=== PATIENT | male | born 1960 | race Caucasian/White ===

== ENCOUNTER 2018-12-11 16:31 | Inpatient (IN) | payer OTHER, SELFPAY ==
[2018-12-11 16:32] VITALS: BP 159/89; PULSE 94; RESP 18; TEMP 36.7; O2SAT 94; BMI 33.5
--- NOTE | 2018-12-11 16:35 | ED.RN ---
PT OFF ALL MEDS FOR MORE THAN A YEAR. INCLUDING CARDIAC. S/O STATES SHE HAS TRIED TO CALL [employer] MULTIPLE TIMES WITHOUT A CALL BACK.
--- NOTE | 2018-12-11 16:53 | EKG12_ITS ---
Test Reason : ETOH INTOXICATION Blood Pressure : / mmHG Vent. Rate : 085 BPM Atrial Rate : 085 BPM P-R Int : 182 ms QRS Dur : 082 ms QT Int : 380 ms P-R-T Axes : 044 063 058 degrees QTc Int : 452 ms Normal sinus rhythm Normal ECG Confirmed by JEY OTERO, RAMO ([id number]), commercial production editor JEN CAVANAUGH ([id number]) on 12/12/2018 1:15:40 PM Referred By: SHARI Confirmed By:RAMO KHANNA MD
--- NOTE | 2018-12-11 16:55 | ED.VISSUMM ---
- ER Visit Summary Date of Service: 12/11/18 Chief Complaint: Alcohol intoxication wanting detox History of Present Illness: The patient is a 58 M who presents requesting detox from alcohol. Patient states he drinks approximately 12 beers per day. Patient states he drinks in the morning before he goes to work and has to have a drink in the middle the night as well. Patient states when he does not drink he feels shaky and has dry heaves. Patient denies any visual or auditory hallucinations. Patient does admit to some tingling in his feet bilaterally. Patient states his last drink was approximately noon today. Physical Examination: Vital signs are stable. Patient is afebrile. Patient is not tachycardic. Patient is in no acute distress. Oral mucosa is pink and moist. Neck is supple. Trachea is midline. There is no JVD noted. Heart was regular rate and rhythm. Lungs are clear and equal bilaterally. Abdomen is soft and nontender. Cranial nerves II through XII are intact. Strength is 5/5 bilaterally upper and lower extremities. There are no sensory deficits noted. There are no resting tremors noted. The remaining physical exam is within normal limits. Test Results: CBC and comprehensive metabolic profile were essentially within normal limits. Serum alcohol level was 253. Urine tox screen was negative. Urinalysis does not show any evidence of urinary tract infection. EKG showed normal sinus rhythm with a rate of 85. There are no acute ST or T wave changes. PA and lateral chest x-ray does not show any acute cardiopulmonary process. Emergency Department Course and Treatment: Patient was given IV fluids. Case was discussed with Dr. Roblero, hospitalist. He will admit the patient to his service. Patient was also discussed with [facility]. They were in to evaluate the patient and the patient is acceptable for admission Disposition: Admit to hospital Impression: Alcohol abuse This note was generated with [employer] dictation software. It may contain incorrect words, spelling, and punctuation that were not noted in review of the chart prior to signing ED Disposition - Plan for ED Patient: Disposition: Acute Care Hospital [facility] Diagnosis: Alcohol abuse
--- NOTE | 2018-12-11 17:07 | NURSING ---
[facility] FOR DR DE LA PAZ
[2018-12-11] MEDS: 0.9% Normal Saline 1,000 ML 1000 ML IV (17:33)
[2018-12-11 17:34] LABS: Bacteria 0 SEEN /hpf (None Seen); Mucous, Urine 0 SEEN /hpf (<or=2+); Red Blood Cells-Urine 0 SEEN /hpf (0-5); Squamous Epithelial Cells - UA 0 SEEN /hpf (0-5); White Blood Cells 0 SEEN /hpf (0-5)
[2018-12-11 17:39] LABS: Absolute Lymphocyte Count 1.28 X10^3/ul (0.83-4.51); Absolute Neutrophil Count 2.8 X10^3/uL (2.0-7.7); Basophil# 0.02 X10^3/uL; Basophil% 0.4 % (0-1); Eosinophil# 0.06 X10^3/uL; Eosinophils% 1.3 % (0-5); Hematocrit 44.5 % (40-54); Hemoglobin 15.1 g/dl (13.0-16.5); Lymphocyte # 1.28 X10^3/ul (4.0); Lymphocyte % 28.4 % (19-41); Mean Corp Hgb Conc 33.9 g/gl (32-36); Mean Corpuscular Volume 97.2 fL (80-94); Mean Platelet Vol. 8.8 fl (6.2-12.0); Monocyte# 0.39 X10^3/uL; Monocyte% 8.6 % (0-10); Neutrophil # 2.76 X10^3/uL (2.7-7.7); Neutrophil % 61.3 % (47-70); POSITIVE COUNT NO; POSITIVE DIFFERENTIAL NO; POSITIVE MORPHOLOGY NO; Platelet Count 116 K/mm3 (150-450); RBC Distribution Width CV 13.8 % (11.6-14.6); RBC Distribution Width SD 49.4 fl (35.1-43.9); Red Blood Count 4.58 M/mm3 (4.6-6.2); White Blood Count 4.5 K/mm3 (4.4-11.0)
--- NOTE | 2018-12-11 17:39 | ED.RN ---
pt states has not taken any of his cardiac medications for over 2 years
[2018-12-11 17:40] LABS: Color, Urine Yellow (Yellow); Glucose, Dipstick 50 mg/dl (Normal); Ketone-Dipstick 5 mg/dl (Negative); Leukocyte Esterase-Dipstick 25 /ul (Negative); Nitrite-Dipstick Negative (Negative); Occult Blood-Urine 25 /ul (Negative); Protein-Dipstick 30 mg/dl (Negative); Specific Gravity, Urine 1.025 (1.002-1.030); Urine Bilirubin Dipstick Negative (Negative); Urine Clarity Clear (Clear); Urine Urobilinogen Normal (Normal)
--- NOTE | 2018-12-11 17:45 | RAD_ITS ---
STUDY: X-RAY CHEST REASON FOR EXAM: Male, 58 years old. Cough and shortness of breath. TECHNIQUE: Frontal and lateral views of the chest. COMPARISON: November 22, 2015 FINDINGS: There is stable hyperexpansion. There is no demonstrated pleural abnormality. There are sternotomy wires unchanged. Normal mediastinum and shagufta. Normal visualized pulmonary arteries. Normal visualized aortic arch and descending thoracic aorta. There is stable thoracic spondylosis. Normal visualized ribs, clavicles, and shoulders. There is no demonstrated abnormality of the visualized soft tissue structures of the upper abdomen. RAD/Chest PA and Lateral IMPRESSION: Stable appearance of the chest with no acute finding. Electronically Signed: Marin Garcia MD at 18:49 EDT , Service support ,
[2018-12-11 17:50] LABS: Hyaline Cast 0-5 SEEN /lpf (0-5)
[2018-12-11 17:52] LABS: Fine Granular Cast- Urine 5-10 SEEN /lpf (0-5)
[2018-12-11 17:54] LABS: ALB/GLOB Ratio 0.9 RATIO (0.9-2.4); AST(SGOT) 114 U/L (15-37); Alanine Aminotransfer ALT/SGPT 151 U/L (16-61); Albumin, Serum 3.9 g/dL (3.2-5.0); Alkaline Phosphatase 96 U/L (45-117); Anion Gap 10 (5-15); BUN 14 mg/dL (7-18); BUN/Creat Ratio 11.8 RATIO (10-20); Calcium,Total 8.4 mg/dL (8.5-10.1); Chloride 101 mmol/L (98-107); Creatinine, Serum 1.19 mg/dL (0.70-1.30); EST Glomerular Filtration Rate 66 mL/min (>60); Est Glom Filt Rate - Afr Amer 80 mL/min (>60); Estimated Creatinine Clearance 69.01 ml/min; Globulin 4.5 g/dL (2.2-4.2); Glucose 118 mg/dL (74-106); Lipase 335 U/L (73-393); Potassium 4.1 mmol/L (3.5-5.1); Protein, Total 8.4 g/dL (6.4-8.2); Sodium Level 138 mmol/L (136-145)
[2018-12-11 18:07] LABS: Amphetamine Urine VISTA NEGATIVE (<1000 ng/mL); Barbiturate Urine VISTA NEGATIVE (< 200 ng/mL); Benzodiazepine Urine VISTA NEGATIVE (< 200 ng/mL); Cocaine Urine VISTA NEGATIVE (< 300 ng/mL); Ecstacy Urine VISTA NEGATIVE (< 500 ng/mL); Methadone Urine VISTA NEGATIVE (< 300 ng/mL); PCP Urine VISTA NEGATIVE (< 25 ng/mL); THC Urine VISTA NEGATIVE (< 50 ng/mL); Vista UDS pH Range 6
[2018-12-11 19:18] VITALS: BP 148/98; PULSE 98; RESP 16
[2018-12-11 19:22] VITALS: BMI 33.5
--- NOTE | 2018-12-11 19:37 | PCM.HP.STD ---
Problem List (1) Alcohol withdrawal Status: Acute Qualifiers: Complication of substance-induced condition: with perceptual disturbance Qualified Code(s): F10.232 - Alcohol dependence with withdrawal with perceptual disturbance History of Present Illness Date of Admission: 12/11/18 Chief Complaint: tremor, nausea The patient is a 58 year old M drinks roughly 12 beers per day. Last drink was at 12 noon today. Since then, has been having tremors, nausea, diaphoresis, dry heaves. Presented to the emergency room and for withdrawal. Patient had a intake CIWA core of 20, I calculated 17. Patient be admitted for medical stabilization for acute alcohol withdrawal. Patient expresses desire to quit and has quit previously. Patient states that part of his reasoning is due to him being suspended at work for having an alcohol level of 0.04. States that he never drinks on the job. [] Past Medical History Past Medical History (Chronic Problems): Chronic Problems CAD (coronary artery disease) (Chronic) HTN (hypertension) (Chronic) COPD (chronic obstructive pulmonary disease) (Chronic) ETOH abuse (Chronic) Allergies amiodarone Allergy (Verified 11/21/16 17:51) Unknown Penicillins Allergy (Verified 11/21/16 17:51) Unknown Home Medications: Ambulatory Orders Medication Instructions Recorded NK 12/11/18 Surgical History: coronary bypass surgery, - - cabg jun 2015 [facility] Smoking Status: Former smoker Tobacco Use: Non-smoker Alcohol: Heavy Drugs: None - *Family History Paternal History Items: Heart Disease Review of Systems Constitutional: Denies: Anorexia, Chills, Fever, Night Sweats, Malaise Eyes: Denies: Blurred vision, Double vision HEENT: Denies: Head Aches, Sinus Congestion, Sinus Drainage Cardiovascular: Denies: Chest Pain, Palpitations Respiratory: Denies: Cough, Shortness of breath at rest, Sputum production Gastrointestinal: Reports: Nausea, - - Dry heaves. Denies: Abdominal Pain Genitourinary: Denies: Dysuria Musculoskeletal: Denies: Joint Pain, Joint Tenderness Skin: Reports: - - Occasional eczema. Denies: Rash, Wounds Neurological: Denies: Numbness, Tingling, Focal weakness Psychiatric: Reports: Anxiety. Denies: Depression, Homicidal Ideations, Suicidal Ideations Hematologic/ Lymphatic: Denies: Easy Bruising, Easy Bleeding, Hx of blood clot Comment: A 10 point review of systems were negative except as mentioned in the history of present illness and the other review of systems. VTE Information - Inpt Only VTE Present on Admission: No Patient Problems: Active and Suspected Problems Alcohol withdrawal (Acute) - Physical Exam General: Alert, Cooperative, No apparent distress, - - Diaphoretic. Alert and appropriate. HEENT: Atraumatic, Normocephalic Oral: Moist Mucosa, No Gingival or Mucosal Lesions/ Ulcerations Neck: No Nodes, Thyroid Normal Size and Texture Lungs: Clear to auscultation, Normal air movement, No rhonchi, No wheeze Cardiovascular: Regular rate, Regular Rhythm, Normal S1, Normal S2, No murmurs Abdomen: Bowel Sounds Present, Soft, Non Tender, Non-Distended, No Hepato-splenomegaly Extremities: No edema, No Calf Tenderness Skin: No rashes, No breakdown Musculoskeletal: No Tenderness to Palpation of Joints or Extremities, No Muscle Wasting Neurological: - - Slight tremor Psych/Mental Status: Appropriate, Anxious Vital Signs Temp Pulse Resp BP Pulse Ox 36.7 C 98 16 148/98 H 94 12/11/18 16:32 12/11/18 19:18 12/11/18 19:18 12/11/18 19:18 12/11/18 16:32 Oxygen Delivery Method Room Air Weight: 105.959 kg Body Mass Index (BMI) 33.5 Laboratory Tests Past 24 Hrs 12/11/18 12/11/18 12/11/18 15:25 15:25 17:28 WBC 4.5 RBC 4.58 L Hgb 15.1 Hct 44.5 MCV 97.2 H MCH 33.0 H MCHC 33.9 RDW 13.8 RDW Differential 49.4 H Plt Count 116 L MPV 8.8 Immature Gran % (Auto) 0.000 Neut % (Auto) 61.3 Lymph % (Auto) 28.4 [place] % (Auto) 8.6 Eos % (Auto) 1.3 Baso % (Auto) 0.4 Absolute Neuts (auto) 2.8 Absolute Lymphs (auto) 1.28 Total Counted Not Reportable Sodium Potassium Chloride Carbon Dioxide Anion Gap BUN Creatinine Estim Creat Clear Calc Est GFR (MDRD) Af Amer Est GFR (MDRD) Non-Af BUN/Creatinine Ratio Glucose Calcium Total Bilirubin AST ALT Alkaline Phosphatase Total Protein Albumin Globulin Albumin/Globulin Ratio Lipase Urine Color Yellow Urine Clarity Clear Urine pH 5.0 Ur Specific [place] 1.025 Urine Protein 30 H Urine Glucose (UA) 50 H Urine Ketones 5 H Urine Occult Blood 25 H Urine Nitrite Negative Urine Bilirubin Negative Urine Urobilinogen Normal Ur Leukocyte Esterase 25 H Urine RBC 0 SEEN Urine WBC 0 SEEN Ur Squamous Epith Cells 0 SEEN Urine Bacteria 0 SEEN Hyaline Casts 0-5 SEEN Fine Granular Casts 5-10 SEEN Urine Mucus 0 SEEN Urine Opiates Screen NEGATIVE Urine Methadone Screen NEGATIVE Ur Barbiturates Screen NEGATIVE Ur Phencyclidine Scrn NEGATIVE Ur Amphetamines Screen NEGATIVE U Methamphetamin-MDMA NEGATIVE U Benzodiazepines Scrn NEGATIVE Urine Cocaine Screen NEGATIVE U Cannabinoids Screen NEGATIVE Ur Drug Screen Comment Ethyl Alcohol 12/11/18 12/11/18 17:28 17:28 WBC RBC Hgb Hct MCV MCH MCHC RDW RDW Differential Plt Count MPV Immature Gran % (Auto) Neut % (Auto) Lymph % (Auto) [place] % (Auto) Eos % (Auto) Baso % (Auto) Absolute Neuts (auto) Absolute Lymphs (auto) Total Counted Sodium 138 Potassium 4.1 Chloride 101 Carbon Dioxide 27.0 Anion Gap 10 BUN 14 Creatinine 1.19 Estim Creat Clear Calc 69.01 Est GFR (MDRD) Af Amer 80 Est GFR (MDRD) Non-Af 66 BUN/Creatinine Ratio 11.8 Glucose 118 H Calcium 8.4 L Total Bilirubin 0.40 AST 114 H ALT 151 H Alkaline Phosphatase 96 Total Protein 8.4 H Albumin 3.9 Globulin 4.5 H Albumin/Globulin Ratio 0.9 Lipase 335 Urine Color Urine Clarity Urine pH Ur Specific [place] Urine Protein Urine Glucose (UA) Urine Ketones Urine Occult Blood Urine Nitrite Urine Bilirubin Urine Urobilinogen Ur Leukocyte Esterase Urine RBC Urine WBC Ur Squamous Epith Cells Urine Bacteria Hyaline Casts Fine Granular Casts Urine Mucus Urine Opiates Screen Urine Methadone Screen Ur Barbiturates Screen Ur Phencyclidine Scrn Ur Amphetamines Screen U Methamphetamin-MDMA U Benzodiazepines Scrn Urine Cocaine Screen U Cannabinoids Screen Ur Drug Screen Comment Ethyl Alcohol 253.0 Assessment/Plan All Active Problems Alcohol withdrawal (Acute) Pancreatitis (Acute) Alcohol withdrawal (Acute) 1. Acute alcohol withdrawal CIWA 17 Patient be started on medical stabilization protocol with lorazepam. Patient have other medications to help him with other somatic complaints. Thiamine and folate 2. Coronary artery disease: Stable 3. DVT prophylaxis: Patient is low risk DVT prophylaxis not indicated at this time. Code Visit Inpatient E&M: 27059 Init Hosp L2
--- NOTE | 2018-12-11 19:41 | HP.PCM_ITS ---
Problem List (1) Alcohol withdrawal Status: Acute Qualifiers: Complication of substance-induced condition: with perceptual disturbance Qualified Code(s): F10.232 - Alcohol dependence with withdrawal with perceptual disturbance History of Present Illness Date of Admission: 12/11/18 Chief Complaint: tremor, nausea The patient is a 58 year old M drinks roughly 12 beers per day. Last drink was at 12 noon today. Since then, has been having tremors, nausea, diaphoresis, dry heaves. Presented to the emergency room and for withdrawal. Patient had a intake CIWA core of 20, I calculated 17. Patient be admitted for medical stabilization for acute alcohol withdrawal. Patient expresses desire to quit and has quit previously. Patient states that part of his reasoning is due to him being suspended at work for having an alcohol level of 0.04. States that he never drinks on the job. [] Past Medical History Past Medical History (Chronic Problems): Chronic Problems CAD (coronary artery disease) (Chronic) HTN (hypertension) (Chronic) COPD (chronic obstructive pulmonary disease) (Chronic) ETOH abuse (Chronic) Allergies amiodarone Allergy (Verified 11/21/16 17:51) Unknown Penicillins Allergy (Verified 11/21/16 17:51) Unknown Home Medications: Ambulatory Orders Medication Instructions Recorded NK 12/11/18 Surgical History: coronary bypass surgery, - - cabg jun 2015 [facility] Smoking Status: Former smoker Tobacco Use: Non-smoker Alcohol: Heavy Drugs: None - *Family History Paternal History Items: Heart Disease Review of Systems Constitutional: Denies: Anorexia, Chills, Fever, Night Sweats, Malaise Eyes: Denies: Blurred vision, Double vision HEENT: Denies: Head Aches, Sinus Congestion, Sinus Drainage Cardiovascular: Denies: Chest Pain, Palpitations Respiratory: Denies: Cough, Shortness of breath at rest, Sputum production Gastrointestinal: Reports: Nausea, - - Dry heaves. Denies: Abdominal Pain Genitourinary: Denies: Dysuria Musculoskeletal: Denies: Joint Pain, Joint Tenderness Skin: Reports: - - Occasional eczema. Denies: Rash, Wounds Neurological: Denies: Numbness, Tingling, Focal weakness Psychiatric: Reports: Anxiety. Denies: Depression, Homicidal Ideations, Porsha cidal Ideations Hematologic/ Lymphatic: Denies: Easy Bruising, Easy Bleeding, Hx of blood clot Comment: A 10 point review of systems were negative except as mentioned in the history of present illness and the other review of systems. VTE Information - Inpt Only VTE Present on Admission: No Patient Problems: Active and Suspected Problems Alcohol withdrawal (Acute) - Physical Exam General: Alert, Cooperative, No apparent distress, - - Diaphoretic. Alert and appropriate. HEENT: Atraumatic, Normocephalic Oral: Moist Mucosa, No Gingival or Mucosal Lesions/ Ulcerations Neck: No Nodes, Thyroid Normal Size and Texture Lungs: Clear to auscultation, Normal air movement, No rhonchi, No wheeze Cardiovascular: Regular rate, Regular Rhythm, Normal S1, Normal S2, No murmurs Abdomen: Bowel Sounds Present, Soft, Non Tender, Non-Distended, No Hepato- splenomegaly Extremities: No edema, No Calf Tenderness Skin: No rashes, No breakdown Musculoskeletal: No Tenderness to Palpation of Joints or Extremities, No Muscle Wasting Neurological: - - Slight tremor Psych/Mental Status: Appropriate, Anxious Vital Signs Temp Pulse Resp BP Pulse Ox 36.7 C 98 16 148/98 H 94 12/11/18 16:32 12/11/18 19:18 12/11/18 19:18 12/11/18 19:18 12/11/18 16:32 Oxygen Delivery Method Room Air Weight: 105.959 kg Body Mass Index (BMI) 33.5 Laboratory Tests Past 24 Hrs 12/11/18 12/11/18 12/11/18 15:25 15:25 17:28 WBC 4.5 RBC 4.58 L Hgb 15.1 Hct 44.5 MCV 97.2 H MCH 33.0 H MCHC 33.9 RDW 13.8 RDW Differential 49.4 H Plt Count 116 L MPV 8.8 Immature Gran % (Auto) 0.000 Neut % (Auto) 61.3 Lymph % (Auto) 28.4 [place] % (Auto) 8.6 Eos % (Auto) 1.3 Baso % (Auto) 0.4 Absolute Neuts (auto) 2.8 Absolute Lymphs (auto) 1.28 Total Counted Not Reportable Sodium Potassium Chloride Carbon Dioxide Anion Gap BUN Creatinine Estim Creat Clear Calc Est GFR (MDRD) Af Amer Est GFR (MDRD) Non-Af BUN/Creatinine Ratio Glucose Calcium Total Bilirubin AST ALT Alkaline Phosphatase Total Protein Albumin Globulin Albumin/Globulin Ratio Lipase Urine Color Yellow Urine Clarity Clear Urine pH 5.0 Ur Specific [place] 1.025 Urine Protein 30 H Urine Glucose (UA) 50 H Urine Ketones 5 H Urine Occult Blood 25 H Urine Nitrite Negative Urine Bilirubin Negative Urine Urobilinogen Normal Ur Leukocyte Esterase 25 H Urine RBC 0 SEEN Urine WBC 0 SEEN Ur Squamous Epith Cells 0 SEEN Urine Bacteria 0 SEEN Hyaline Casts 0-5 SEEN Fine Granular Casts 5-10 SEEN Urine Mucus 0 SEEN Urine Opiates Screen NEGATIVE Urine Methadone Screen NEGATIVE Ur Barbiturates Screen NEGATIVE Ur Phencyclidine Scrn NEGATIVE Ur Amphetamines Screen NEGATIVE U Methamphetamin-MDMA NEGATIVE U Benzodiazepines Scrn NEGATIVE Urine Cocaine Screen NEGATIVE U Cannabinoids Screen NEGATIVE Ur Drug Screen Comment Ethyl Alcohol 12/11/18 12/11/18 17:28 17:28 WBC RBC Hgb Hct MCV MCH MCHC RDW RDW Differential Plt Count MPV Immature Gran % (Auto) Neut % (Auto) Lymph % (Auto) [place] % (Auto) Eos % (Auto) Baso % (Auto) Absolute Neuts (auto) Absolute Lymphs (auto) Total Counted Sodium 138 Potassium 4.1 Chloride 101 Carbon Dioxide 27.0 Anion Gap 10 BUN 14 Creatinine 1.19 Estim Creat Clear Calc 69.01 Est GFR (MDRD) Af Amer 80 Est GFR (MDRD) Non-Af 66 BUN/Creatinine Ratio 11.8 Glucose 118 H Calcium 8.4 L Total Bilirubin 0.40 AST 114 H ALT 151 H Alkaline Phosphatase 96 Total Protein 8.4 H Albumin 3.9 Globulin 4.5 H Albumin/Globulin Ratio 0.9 Lipase 335 Urine Color Urine Clarity Urine pH Ur Specific [place] Urine Protein Urine Glucose (UA) Urine Ketones Urine Occult Blood Urine Nitrite Urine Bilirubin Urine Urobilinogen Ur Leukocyte Esterase Urine RBC Urine WBC Ur Squamous Epith Cells Urine Bacteria Hyaline Casts Fine Granular Casts Urine Mucus Urine Opiates Screen Urine Methadone Screen Ur Barbiturates Screen Ur Phencyclidine Scrn Ur Amphetamines Screen U Methamphetamin-MDMA U Benzodiazepines Scrn Urine Cocaine Screen U Cannabinoids Screen Ur Drug Screen Comment Ethyl Alcohol 253.0 Assessment/Plan All Active Problems Alcohol withdrawal (Acute) Pancreatitis (Acute) Alcohol withdrawal (Acute) 1. Acute alcohol withdrawal * CIWA 17 * Patient be started on medical stabilization protocol with lorazepam. Patient have other medications to help him with other somatic complaints. * Thiamine and folate 2. Coronary artery disease: Stable 3. DVT prophylaxis: Patient is low risk DVT prophylaxis not indicated at this time. Code Visit Inpatient E&M: 12621 Init Hosp L2
[2018-12-11 19:57] VITALS: BMI 33.3
[2018-12-11] MEDS: Ondansetron ODT 4 MG Tablet PO (20:18)
[2018-12-11] MEDS: hydrOXYzine PAM 25 MG Capsule 50 MG PO (20:18)
[2018-12-11 20:20] VITALS: BP 158/88; PULSE 90; RESP 18; TEMP 36.9
[2018-12-11] MEDS: Lactated Ringers 1,000 ML 125 ML IV (20:35)
[2018-12-11 21:39] VITALS: BP 163/94; PULSE 83; RESP 18; TEMP 36.9
[2018-12-11] MEDS: Dicyclomine 10 MG Capsule 20 MG PO (21:48)
[2018-12-11] MEDS: Methocarbamol 750 MG Tablet PO (21:48)
[2018-12-11] MEDS: traZODone 50 MG Tablet PO (21:48)
[2018-12-11] MEDS: LORazepam 1 MG Tablet PO (23:25)
[2018-12-12] VITALS (8 sets, daily range): BP systolic 151–193; BP diastolic 86–112; PULSE 75–105; RESP 16–18; TEMP 36.7–36.9; O2SAT 97
[2018-12-12] MEDS: LORazepam 1 MG Tablet PO ×5 (03:43→23:17)
[2018-12-12] MEDS: Dicyclomine 10 MG Capsule 20 MG PO (03:48)
[2018-12-12] MEDS: Methocarbamol 750 MG Tablet PO (03:48)
[2018-12-12] MEDS: Multivitamins,Therapeutic Tablet 1 TABLET PO (08:59)
[2018-12-12] MEDS: Thiamine Hydrochloride 100 MG Tablet PO (08:59)
[2018-12-12] MEDS: Folic Acid 1 MG Tablet PO (08:59)
[2018-12-12] MEDS: hydrOXYzine PAM 25 MG Capsule 50 MG PO (09:09)
[2018-12-12] MEDS: Ondansetron ODT 4 MG Tablet PO (09:09)
--- NOTE | 2018-12-12 09:12 | NURSING ---
Patient sleepy this morning-- when pt woke to use bathroom- this RN gave pt his AM meds. Pt reports always have high anxiety. PRN vistaril given and zofran. Pt reports tremors- markedly visable and nausea. Pt reports dry heaves and although breakfast and/ or snacks offered- pt refused. Pt able to drink water- and was refilled at this time.
--- NOTE | 2018-12-12 10:54 | PCM.PN.HOSP ---
Patient Problems: Active and Suspected Problems Alcohol withdrawal (Acute) Subjective: Patient is being admitted under [facility] for acute alcohol withdrawal secondary to chronic alcohol use and dependence. Patient has severe tremors and shaking. Having diffuse muscle aches and pain, abdominal cramps and restlessness. Patient mostly does not know about chronic liver disease but has alcoholic hepatitis on labs, AST 114, ALT 151. Albumin 3.9, globulin 4.5. Denies hematemesis/melena or ascites or stigmata of chronic liver disease Vitals/I&O's: Vital Signs Temp Pulse Resp BP Pulse Ox 98.2 F 75 18 187/107 H 97 12/12/18 09:06 12/12/18 10:13 12/12/18 10:15 12/12/18 10:13 12/12/18 10:13 Oxygen Delivery Method Room Air Weight: 231 lb 14.821 oz Body Mass Index (BMI) 33.3 Intake and Output for Last 24 Hours 12/10/18 12/11/18 12/12/18 23:59 23:59 23:59 Intake Total 1408 / 1408 Balance 1408 / 1408 General: Oriented x3, Cooperative, Confused, Lethargic HEENT: Atraumatic, PERRLA, EOMI, Normocephalic Neck: Supple, No JVD, Negative Carotid Bruits Lungs: Clear to auscultation, No rhonchi, No wheeze, No rales, Diminished - Air entry is diminished bilaterally Cardiovascular: Regular rate, Regular Rhythm, Normal S1, Normal S2, No murmurs Abdomen: Bowel Sounds Present, Soft, Non Tender, Non-Distended Extremities: Capillary Refill Less than 3 Seconds, Edema Skin: No rashes, No breakdown Musculoskeletal: Arthritic Changes, Muscle Wasting Lymphatic: No Cervical, Supraclavicular, or Inguinal Adenopathy Laboratory Results 12/11/18 15:25: Urine Color Yellow, Urine Clarity Clear, Urine pH 5.0, Ur Specific [place] 1.025, Urine Protein 30 H, Urine Glucose (UA) 50 H, Urine Ketones 5 H, Urine Occult Blood 25 H, Urine Nitrite Negative, Urine Bilirubin Negative, Urine Urobilinogen Normal, Ur Leukocyte Esterase 25 H, Urine RBC 0 SEEN, Urine WBC 0 SEEN, Ur Squamous Epith Cells 0 SEEN, Urine Bacteria 0 SEEN, Hyaline Casts 0-5 SEEN, Fine Granular Casts 5-10 SEEN, Urine Mucus 0 SEEN 12/11/18 15:25: Urine Opiates Screen NEGATIVE, Urine Methadone Screen NEGATIVE, Ur Barbiturates Screen NEGATIVE, Ur Phencyclidine Scrn NEGATIVE, Ur Amphetamines Screen NEGATIVE, U Methamphetamin-MDMA NEGATIVE, U Benzodiazepines Scrn NEGATIVE, Urine Cocaine Screen NEGATIVE, U Cannabinoids Screen NEGATIVE, Ur Drug Screen Comment 12/11/18 17:28: WBC 4.5, RBC 4.58 L, Hgb 15.1, Hct 44.5, MCV 97.2 H, MCH 33.0 H, MCHC 33.9, RDW 13.8, RDW Differential 49.4 H, Plt Count 116 L, MPV 8.8, Immature Gran % (Auto) 0.000, Neut % (Auto) 61.3, Lymph % (Auto) 28.4, [place] % (Auto) 8.6, Eos % (Auto) 1.3, Baso % (Auto) 0.4, Absolute Neuts (auto) 2.8, Absolute Lymphs (auto) 1.28, Total Counted Not Reportable 12/11/18 17:28: Sodium 138, Potassium 4.1, Chloride 101, Carbon Dioxide 27.0, Anion Gap 10, BUN 14, Creatinine 1.19, Estim Creat Clear Calc 69.01, Est GFR (MDRD) Af Amer 80, Est GFR (MDRD) Non-Af 66, BUN/Creatinine Ratio 11.8, Glucose 118 H, Calcium 8.4 L, Total Bilirubin 0.40, AST 114 H, ALT 151 H, Alkaline Phosphatase 96, Total Protein 8.4 H, Albumin 3.9, Globulin 4.5 H, Albumin/Globulin Ratio 0.9, Lipase 335 12/11/18 17:28: Ethyl Alcohol 253.0 Current Medications Acetaminophen (Tylenol) 500 mg PO Q4H PRN PRN PRN Reason: Temp > 100.4 F Dicyclomine HCl (Bentyl) 20 mg PO Q6H PRN PRN PRN Reason: abdominal discomfort Last Admin: 12/12/18 03:48 Dose: 20 mg Folic Acid (Folic Acid) 1 mg PO DAILYCM LIAM Last Admin: 12/12/18 08:59 Dose: 1 mg Hydroxyzine Pamoate (Vistaril Pamoate Capsule) 50 mg PO Q6H PRN PRN PRN Reason: Mild Anxiety (score 1/3) Last Admin: 12/12/18 09:09 Dose: 50 mg Ibuprofen (Motrin) 600 mg PO Q8H PRN PRN PRN Reason: Mild-Moderate Pain (1-5/10) Lorazepam (Ativan) 1 mg IV Q4H PRN PRN PRN Reason: Severe Anxiety Lorazepam (Ativan) 1 mg PO Q4H [facility]; Taper Stop: 12/14/18 23:44 Last Admin: 12/12/18 08:59 Dose: 1 mg Methocarbamol (Methocarbamol) 750 mg PO Q6H PRN PRN PRN Reason: Muscle Aches Last Admin: 12/12/18 03:48 Dose: 750 mg [facility] Last Admin: 12/12/18 08:59 Dose: 1 tablet Ondansetron HCl (Zofran Odt) 4 mg PO Q6H PRN PRN PRN Reason: NAUSEA Last Admin: 12/12/18 09:09 Dose: 4 mg Sodium Chloride () 5 - 15 ml IV UD PRN PRN Reason: SALINE FLUSH Thiamine HCl (Vitamin B1) [facility] Last Admin: 12/12/18 08:59 Dose: 100 mg Trazodone HCl (Desyrel) 50 mg PO QHS [facility] Last Admin: 12/11/18 21:48 Dose: 50 mg Medical Necessity - Tobacco Use Smoking Status: Former smoker Tobacco Use: Non-smoker Assessment/Plan All Active Problems Alcohol withdrawal (Acute) Pancreatitis (Acute) Alcohol withdrawal (Acute) 58-year-old gentleman with history of chronic alcohol use and dependence about 12 beers acute alcohol withdrawal syndrome with tremors, nausea diaphoresis every day was admitted. Admitting CIWA score was 20. 1. Acute alcohol withdrawal syndrome: Most recent CIWA score is 5. Patient is markedly visible tremor shaking. Having diffuse muscle aches and pain, abdominal cramps and restlessness. 2. Acute on chronic alcoholic hepatitis: ALT and AST are elevated, AST 114, ALT 151. Albumin 3.9, globulin 4.5. Denies hematemesis/melena or ascites or stigmata of chronic liver disease. AST was 18 on 12/2016. AST and ALT were elevated earlier in November 2016; AST 217. ALT 383 3. Coronary artery disease status post CABG: Continued home cardiac medications. 4. DVT prophylaxis: Bilateral SCDs. Clinical Impression(s) from Imaging Studies Chest X-Ray 12/11/18 17:45 IMPRESSION: Stable appearance of the chest with no acute finding. Code Visit Inpatient E&M: 15393 Subs Hosp L2
--- NOTE | 2018-12-12 11:15 | NEWVISION ---
Patient has appointment with [facility] for outpatient services on December 23, 2018 at 11 am.
[2018-12-12] MEDS: cloNIDine HCl 0.1 MG Tablet 0.2 MG PO (12:15)
[2018-12-12] MEDS: chlordiazePOXIDE 25 MG Capsule 50 MG PO (12:15)
--- NOTE | 2018-12-12 13:38 | CASEMGMT ---
Social Work Note SW received call from [place] at [place] stating she was provided pamphlet from pt regarding [employer] and that SW needs to call a Richa Shultz in regards to pt ([phone]). Pt signed release of records/information document for [employer] and placed on pt's chart. SW placed a call to Richa Shultz and left message to return this worker's phone call. STANISLAW discussed case with BETHANY Sung, social worker masters. This worker may not be able to provide any information to [employer] due to HIPAA but may be able to speak with Richa and pt on the phone at the same time regarding pt's care. STANISLAW waiting for call back from Richa. Kym Patel TABULATING CLERK, ABSTRACT CLERK
[2018-12-12 17:09] LABS: AST(SGOT) 83 U/L (15-37); Alanine Aminotransfer ALT/SGPT 121 U/L (16-61); Albumin, Serum 3.6 g/dL (3.2-5.0); Alkaline Phosphatase 81 U/L (45-117); Anion Gap 4 (5-15); BUN 14 mg/dL (7-18); BUN/Creat Ratio 11.8 RATIO (10-20); Calcium,Total 8.2 mg/dL (8.5-10.1); Chloride 98 mmol/L (98-107); Creatinine, Serum 1.19 mg/dL (0.70-1.30); EST Glomerular Filtration Rate 66 mL/min (>60); Est Glom Filt Rate - Afr Amer 80 mL/min (>60); Estimated Creatinine Clearance 69.01 ml/min; Globulin 3.6 g/dL (2.2-4.2); Glucose 107 mg/dL (74-106); Protein, Total 7.2 g/dL (6.4-8.2); Sodium Level 132 mmol/L (136-145)
[2018-12-12] MEDS: 0.9% NaCl Peripheral Flush Adult/Peds IV (17:16)
[2018-12-12] MEDS: 0.9% Normal Saline 1,000 ML 100 ML IV (17:16)
[2018-12-12] MEDS: traZODone 50 MG Tablet PO (23:14)
[2018-12-13] VITALS (11 sets, daily range): BP systolic 124–166; BP diastolic 74–99; PULSE 71–95; RESP 16–18; TEMP 36.3–36.8; O2SAT 99
[2018-12-13] MEDS: LORazepam 1 MG Tablet PO ×4 (04:40→23:34)
[2018-12-13] MEDS: cloNIDine HCl 0.1 MG Tablet 0.2 MG PO (04:51)
[2018-12-13] MEDS: Thiamine Hydrochloride 100 MG Tablet PO (08:47)
[2018-12-13] MEDS: Folic Acid 1 MG Tablet PO (08:47)
[2018-12-13] MEDS: Multivitamins,Therapeutic Tablet 1 TABLET PO (08:47)
--- NOTE | 2018-12-13 10:54 | PN_ITS ---
Patient Problems: Active and Suspected Problems Alcohol withdrawal (Acute) Subjective: Patient shaking/tremors is much better. Overall feels good. Blood pressure is elevated. Did not get good response on clonidine therefore discontinued Vitals/I&O's: Vital Signs Temp Pulse Resp BP Pulse Ox 98.0 F 82 18 142/79 H 97 12/13/18 08:16 12/13/18 08:16 12/13/18 08:16 12/13/18 08:16 12/12/18 10:13 Oxygen Delivery Method Room Air Weight: 231 lb 14.821 oz Body Mass Index (BMI) 33.3 Intake and Output for Last 24 Hours 12/11/18 12/12/18 12/13/18 23:59 23:59 23:59 Intake Total 6908 / 6908 200 / 200 Balance 6908 / 6908 200 / 200 General: Alert, Oriented x3, Cooperative HEENT: Atraumatic, PERRLA, EOMI, Normocephalic Neck: Supple, No JVD, Negative Carotid Bruits Lungs: Clear to auscultation, No rhonchi, No wheeze, No rales, Diminished - Air entry is diminished Cardiovascular: Regular rate, Regular Rhythm, Normal S1, Normal S2, No murmurs Abdomen: Bowel Sounds Present, Soft, Non Tender, Non-Distended Extremities: No edema, Capillary Refill Less than 3 Seconds Skin: No rashes, No breakdown Musculoskeletal: No Tenderness to Palpation of Joints or Extremities, Arthritic Changes, Muscle Wasting Neurological: Cranial nerves II-XII grossly intact Psych/Mental Status: Normal Affect, Appropriate Laboratory Results 12/12/18 14:18: Sodium 132 L, Potassium 4.0, Chloride 98, Carbon Dioxide 30.0, Anion Gap 4 L, BUN 14, Creatinine 1.19, Estim Creat Clear Calc 69.01, Est GFR (MDRD) Af Amer 80, Est GFR (MDRD) Non-Af 66, BUN/Creatinine Ratio 11.8, Glucose 107 H, Calcium 8.2 L, Total Bilirubin 1.00, AST 83 H, ALT 121 H, Alkaline Phosphatase 81, Total Protein 7.2, Albumin 3.6, Globulin 3.6, Albumin/Globulin Ratio 1.0 Current Medications Acetaminophen (Tylenol) 500 mg PO Q4H PRN PRN PRN Reason: Temp > 100.4 F Dicyclomine HCl (Bentyl) 20 mg PO Q6H PRN PRN PRN Reason: abdominal discomfort Last Admin: 12/12/18 03:48 Dose: 20 mg [facility] Last Admin: 12/13/18 08:47 Dose: 1 mg Hydralazine HCl (Apresoline) 25 mg PO TID [facility] Hydralazine HCl (Apresoline Iv) 10 mg IV Q4H PRN PRN PRN Reason: SBP>180 Hydroxyzine Pamoate (Vistaril Pamoate Capsule) 50 mg PO Q6H PRN PRN PRN Reason: Mild Anxiety (score 1/3) Last Admin: 12/12/18 09:09 Dose: 50 mg Ibuprofen (Motrin) 600 mg PO Q8H PRN PRN PRN Reason: Mild-Moderate Pain (1-5/10) Lorazepam (Ativan) 1 mg IV Q4H PRN PRN PRN Reason: Severe Anxiety Lorazepam (Ativan) 1 mg PO Q6H [facility]; Taper Stop: 12/14/18 23:44 Last Admin: 12/13/18 08:49 Dose: 1 mg Methocarbamol (Methocarbamol) 750 mg PO Q6H PRN PRN PRN Reason: Muscle Aches Last Admin: 12/12/18 03:48 Dose: 750 mg Metoprolol Tartrate (Lopressor (Beta Reginaldo)) 25 mg PO BID [facility] Multivitamins ([facility]ivitamin) [facility] Last Admin: 12/13/18 08:47 Dose: 1 tablet Ondansetron HCl (Zofran Odt) 4 mg PO Q6H PRN PRN PRN Reason: NAUSEA Last Admin: 12/12/18 09:09 Dose: 4 mg Senna (Senokot) 1 tablet PO QHS PRN PRN Reason: Constipation Sodium Chloride () 5 - 15 ml IV UD PRN PRN Reason: SALINE FLUSH Last Admin: 12/12/18 17:16 Dose: 10 ml Thiamine HCl (Vitamin B1) [facility] Last Admin: 12/13/18 08:47 Dose: 100 mg [facility]od[facility]) [facility] Last Admin: 12/12/18 23:14 Dose: 50 mg Medical Necessity - Tobacco Use Smoking Status: Former smoker Tobacco Use: Non-smoker Assessment/Plan All Active Problems Alcohol withdrawal (Acute) Pancreatitis (Acute) Alcohol withdrawal (Acute) 58-year-old gentleman with history of chronic alcohol use and dependence about 12 beers acute alcohol withdrawal syndrome with tremors, nausea diaphoresis every day was admitted. Admitting CIWA score was 20. 1. Acute alcohol withdrawal syndrome: Patient's tremors/shaking is much better. Had received 1 dose of Librium yesterday. 2. Acute on chronic alcoholic hepatitis: ALT and AST are elevated, AST 114, ALT 151. Albumin 3.9, globulin 4.5. Denies hematemesis/melena or ascites or stigmata of chronic liver disease. Repeat LFT shows improvement in ALT and AST as mentioned below. AST was 18 on 12/2016. AST and ALT were elevated earlier in November 2016; AST 217. ALT 383 3. Coronary artery disease status post CABG: Continued home cardiac medications. 4. DVT prophylaxis: Bilateral SCDs. Clinical Impression(s) from Imaging Studies Chest X-Ray 12/11/18 17:45 IMPRESSION: Stable appearance of the chest with no acute finding. Laboratory Results 12/12/18 14:18: Sodium 132 L, Potassium 4.0, Chloride 98, Carbon Dioxide 30.0, Anion Gap 4 L, BUN 14, Creatinine 1.19, Estim Creat Clear Calc 69.01, Est GFR (MDRD) Af Amer 80, Est GFR (MDRD) Non-Af 66, BUN/Creatinine Ratio 11.8, Glucose 107 H, Calcium 8.2 L, Total Bilirubin 1.00, AST 83 H, ALT 121 H, Alkaline Phosphatase 81, Total Protein 7.2, Albumin 3.6, Globulin 3.6, Albumin/Globulin Ratio 1.0 Code Visit Inpatient E&M: 65322 Subs Hosp L2
--- NOTE | 2018-12-13 11:39 | CASEMGMT ---
Addendum entered by Kym Patel 12/13/18 13:30: SW received message from Richa stating he is in a seminar all afternoon and will be unavailable. Richa states he will be back in the office Sunday morning at 8:00am. Richa provided direct number [phone]. It is likely pt will be discharged over the weekend. STANISLAW met with pt. STANISLAW informed pt that this worker has left messages for Richa and Richa is gone for the afternoon. STANISLAW provided pt with Richa's direct number and encouraged him to once he gets established with [facility] to have staff at [facility]. Pt states understanding, denied additional needs or concerns. Original Note: Social Work Note STANISLAW attempted to contact Richa Carrington again. Richa didn't answer, message was left for Richa to give this worker a call back at his earliest convenience. STANISLAW provided direct number. Kym Patel YARDMASTER, RADIO BROADCASTER
[2018-12-13] MEDS: Lisinopril 10 MG Tablet PO (12:35)
[2018-12-13] MEDS: hydrALAZINE 25 MG Tablet PO ×2 (12:35→21:15)
[2018-12-13] MEDS: traZODone 50 MG Tablet PO (21:15)
[2018-12-13] MEDS: hydrOXYzine PAM 25 MG Capsule 50 MG PO (21:24)
[2018-12-13] MEDS: Metoprolol Tartrate 25 MG Tablet PO (22:29)
[2018-12-14] VITALS (7 sets, daily range): BP systolic 126–159; BP diastolic 77–101; PULSE 61–81; RESP 16–18; TEMP 36.6–36.9; O2SAT 100
[2018-12-14] MEDS: hydrALAZINE 25 MG Tablet PO (06:41)
--- NOTE | 2018-12-14 07:22 | DCINST_ITS ---
- Discharge Diagnoses Current Active Problems: Current Active and Chronic Problems Alcohol withdrawal (Acute) ETOH abuse (Chronic) You will use the following diet at home:: Cardiac Discharge Activity: May Not Drive Weight Bearing Status: Weight bearing as tolerated Call your doctor if you observe: Fever of 101 or Higher, Inability to have a bowel movement, Shortness of breath, Fainting spells, Swelling in the ankles, Chest pain Allergies/Adverse Reactions: Allergies amiodarone Allergy (Verified 12/11/18 20:06) Anaphylaxis Penicillins Allergy (Verified 12/11/18 20:06) Hives Medications to take at Discharge Metoprolol Tartrate 25 mg PO BID 12/11/18 Cyanocobalamin [Vitamin B12] 500 mcg PO DAILY@0800 #30 tablet 12/14/18 Folic Acid 1 mg PO DAILYCM #30 tablet 12/14/18 Lisinopril 20 mg PO DAILY #30 tablet 12/14/18 Multivitamins,Therapeutic [Multivitamin] 1 tablet PO DAILYCM #30 tablet 12/14/18 Thiamine Hydrochloride [Vitamin B1] 100 mg PO DAILYCM #30 tablet 12/14/18 The following prescriptions were given: Cyanocobalamin [Vitamin B12] 500 mcg PO DAILY@0800 #30 tablet Folic Acid 1 mg PO DAILYCM #30 tablet Lisinopril 20 mg PO DAILY #30 tablet Multivitamins,Therapeutic [Multivitamin] 1 tablet PO DAILYCM #30 tablet Thiamine Hydrochloride [Vitamin B1] 100 mg PO DAILYCM #30 tablet Primary Care Physician: José Miguel Moses MD [Primary Care Provider] - Please follow up with your Primary Care Physician in: in 1-2 week Test Results: Test results from this visit will be discussed in further detail at your follow- up appointment, if applicable. Please Follow Up With: Arvin Mehta MD When: CAD in 2-3 week
[2018-12-14] MEDS: Multivitamins,Therapeutic Tablet 1 TABLET PO (08:16)
[2018-12-14] MEDS: Lisinopril 10 MG Tablet PO (08:16)
[2018-12-14] MEDS: Metoprolol Tartrate 25 MG Tablet PO (08:16)
[2018-12-14] MEDS: Thiamine Hydrochloride 100 MG Tablet PO (08:16)
[2018-12-14] MEDS: Folic Acid 1 MG Tablet PO (08:16)
[2018-12-14] MEDS: LORazepam 1 MG Tablet PO (08:18)
--- NOTE | 2018-12-14 09:05 | PCM.DC.SUM ---
Discharge Date and Diagnosis Date of Admission: 12/11/18 Date of Discharge: 12/14/18 - Primary Discharge Diagnosis Active and Suspected Problems Alcohol withdrawal (Acute) - Secondary Discharge Diagnosis Chronic Problems CAD (coronary artery disease) (Chronic) HTN (hypertension) (Chronic) COPD (chronic obstructive pulmonary disease) (Chronic) ETOH abuse (Chronic) Hospital Course and Treatment Summary of Care Provided: The patient is a 58-year-old gentleman with history of chronic alcohol use and dependence about 12 beers acute alcohol withdrawal syndrome with tremors, nausea diaphoresis every day was admitted. Admitting CIWA score was 20. 1. Acute alcohol withdrawal syndrome: Patient's tremors/shaking is much better. Had received 1 dose of Librium during hospital stay. Prescription was given for folic acid, thiamine, multivitamin and B12. 2. Uncontrolled hypertension: Initially blood pressure was elevated even on clonidine. Lisinopril started and increased to 20 mg daily. Prescription given for lisinopril 20 mg daily[address] Follow with Dr. Mehta in 2-3 weeks. 2. Acute on chronic alcoholic hepatitis with thrombocytopenia: ALT and AST are elevated, AST 114, ALT 151. Albumin 3.9, globulin 4.5. Denies hematemesis/melena or ascites or stigmata of chronic liver disease. Repeat LFT shows improvement in ALT and AST as mentioned below. AST was 18 on 12/2016. AST and ALT were elevated earlier in November 2016; AST 217. ALT 383 3. Coronary artery disease status post CABG: Continued home cardiac medications. Currently patient is not taking aspirin is not listed on his home medication. Patient is to follow Dr. Mehta and CBC and if platelet count is stable around 200 K resume baby aspirin but I will not recommend now as patient has thrombocytopenia, 116,000. Previous baseline platelet count about 250,000. 4. DVT prophylaxis: Bilateral SCDs. 5. Subacute thrombocytopenia most probably secondary to chronic alcohol use and dependence. Alcohol cessation. 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 Discharge follow-up instructions completed. Discharge process discussed with the patient and all questions were answered to patient's satisfaction. Total time spent, exact 35 minutes on discharge meds reconciliation, examination, review of imaging and blood test and discussion with the patient on follow-up instructions. Clinical Impression(s) from Imaging Studies Chest X-Ray 12/11/18 17:45 IMPRESSION: Stable appearance of the chest with no acute finding. Subjective: Seen and examined. Patient tremors are well controlled. Alert awake oriented x3. No hallucinations. - Physical Exam General: Alert, Oriented x3, Cooperative HEENT: Atraumatic, PERRLA, EOMI, Normocephalic Neck: Supple, No JVD, Negative Carotid Bruits Lungs: Clear to auscultation, No rhonchi, No wheeze, No rales, Diminished Cardiovascular: Regular rate, Regular Rhythm, Normal S1, Normal S2, No murmurs Abdomen: Bowel Sounds Present, Soft, Non Tender, Non-Distended Extremities: No edema, Capillary Refill Less than 3 Seconds Skin: No rashes, No breakdown Musculoskeletal: No Tenderness to Palpation of Joints or Extremities, Arthritic Changes Neurological: Cranial nerves II-XII grossly intact, Deep Tendon Reflexes 2+/4 and Symmetrical, Neuro grossly intact, Motor Exam 5/5 strength throughout Psych/Mental Status: Normal Affect, Appropriate Vital Signs Temp Pulse Resp BP Pulse Ox 98.1 F 81 16 150/101 H 100 12/14/18 08:12 12/14/18 08:16 12/14/18 08:12 12/14/18 08:12 12/14/18 06:38 Oxygen Delivery Method Room Air Weight: 231 lb 14.821 oz Body Mass Index (BMI) 33.3 Intake and Output for Last 24 Hours 12/12/18 12/13/18 12/14/18 23:59 23:59 23:59 Intake Total 6908 / 6908 3700 / 3700 400 / 400 Balance 6908 / 6908 3700 / 3700 400 / 400 Home Medications: Medications to take at Discharge Metoprolol Tartrate 25 mg PO BID 12/11/18 Cyanocobalamin [Vitamin B12] 500 mcg PO DAILY@0800 #30 tablet 12/14/18 Folic Acid 1 mg PO DAILYCM #30 tablet 12/14/18 Lisinopril 20 mg PO DAILY #30 tablet 12/14/18 Multivitamins,Therapeutic [Multivitamin] 1 tablet PO DAILYCM #30 tablet 12/14/18 Thiamine Hydrochloride [Vitamin B1] 100 mg PO DAILYCM #30 tablet 12/14/18 Following Prescrptions Were Given to Patient: Cyanocobalamin [Vitamin B12] 500 mcg PO DAILY@0800 #30 tablet Folic Acid 1 mg PO DAILYCM #30 tablet Lisinopril 20 mg PO DAILY #30 tablet Multivitamins,Therapeutic [Multivitamin] 1 tablet PO DAILYCM #30 tablet Thiamine Hydrochloride [Vitamin B1] 100 mg PO DAILYCM #30 tablet Primary Care Physician: José Miguel Moses MD [Primary Care Provider] - Medical Necessity - Tobacco Use Smoking Status: Former smoker Tobacco Use: Non-smoker Meaningful Use Info Meaningful Use Diagnoses (Choose all that apply): None applicable Code Visit Inpatient E&M: 03662 Disch Hosp
--- NOTE | 2018-12-16 16:42 | CASEMGMT ---
Social Work Note STANISLAW placed a call to Richa Shultz and informed him pt has been discharged from [facility] and if he has any further questions or concerns to follow up with pt. STANISLAW informed Richa that this worker is unable to provide information to him regarding pt's stay at [facility] or discharge as pt is no longer admitted to [facility]. Kym Patel SPOOLER, WELDER TOOL AND DIE
== END 2018-12-14 10:50 | disposition home or self-care (01) | DRG 897 ==
LOC: ED 16:53 → MS2 20:10
PROVIDERS: Emergency Provider Emergency Medicine; Family Provider Family Medicine; PCP Family Medicine; Visit Provider Internal Medicine
DX: F10.239 Alcohol dependence with withdrawal, unspecified (principal); Y90.8 Blood alcohol level of 240 mg/100 ml or more; I25.10 Atherosclerotic heart disease of native coronary artery without angina pectoris; Z95.1 Presence of aortocoronary bypass graft; I10 Essential (primary) hypertension; J44.9 Chronic obstructive pulmonary disease, unspecified; K70.10 Alcoholic hepatitis without ascites; D69.59 Other secondary thrombocytopenia; Z87.891 Personal history of nicotine dependence
CPT/HCPCS: 36415; 71046; 80053; 80307; 80320; 81001; 83690; 85025; 93005; 99282; J7030; J7120; A4216; G0480

== ENCOUNTER 2019-01-09 21:14 | Inpatient (IN) | payer OTHER, SELFPAY ==
[2019-01-09 21:16] VITALS: BP 164/113; PULSE 111; RESP 22; TEMP 36.1; O2SAT 96; BMI 33.0
[2019-01-09 22:45] VITALS: RESP 20
--- NOTE | 2019-01-09 22:56 | EKG12_ITS ---
Test Reason : Blood Pressure : / mmHG Vent. Rate : 095 BPM Atrial Rate : 095 BPM P-R Int : 168 ms QRS Dur : 072 ms QT Int : 368 ms P-R-T Axes : 083 056 045 degrees QTc Int : 462 ms Normal sinus rhythm Normal ECG Confirmed by JOHNSON OTERO, CRUZ ([id number]), photo editor JEN CAVANAUGH ([id number]) on 01/13/2019 11:37:10 AM Referred By: TL Confirmed By:CRUZ ORNELAS MD
[2019-01-09] MEDS: Ondansetron 4 MG/2 ML Vial IV (23:03)
[2019-01-09] MEDS: 0.9% Normal Saline 1,000 ML 1000 ML IV (23:03)
[2019-01-09] MEDS: LORazepam 2 MG/ML Syringe 1 MG IV (23:07)
[2019-01-09 23:09] VITALS: BP 193/109; PULSE 102; RESP 20; O2SAT 92
[2019-01-09 23:17] LABS: Absolute Neutrophil Count 6.5 X10^3/uL (2.0-7.7); Basophil# 0.02 X10^3/uL; Basophil% 0.3 % (0-1); Hematocrit 42.1 % (40-54); Hemoglobin 14.7 g/dl (13.0-16.5); Lymphocyte % 7.9 % (19-41); Mean Corp Hgb Conc 34.9 g/gl (32-36); Mean Corpuscular Hgb 33.3 pg (27.0-32.0); Mean Corpuscular Volume 95.5 fL (80-94); Mean Platelet Vol. 8.7 fl (6.2-12.0); Monocyte# 0.42 X10^3/uL; Monocyte% 5.5 % (0-10); Neutrophil # 6.53 X10^3/uL (2.7-7.7); Neutrophil % 86.2 % (47-70); Platelet Count 97 K/mm3 (150-450); RBC Distribution Width CV 13.5 % (11.6-14.6); RBC Distribution Width SD 47.3 fl (35.1-43.9); Red Blood Count 4.41 M/mm3 (4.6-6.2); White Blood Count 7.6 K/mm3 (4.4-11.0)
[2019-01-09 23:18] LABS: ALB/GLOB Ratio 0.8 RATIO (0.9-2.4); AST(SGOT) 141 U/L (15-37); Alanine Aminotransfer ALT/SGPT 152 U/L (16-61); Albumin, Serum 3.9 g/dL (3.2-5.0); Alkaline Phosphatase 130 U/L (45-117); Anion Gap 15 (5-15); BUN 10 mg/dL (7-18); BUN/Creat Ratio 8.5 RATIO (10-20); Calcium,Total 8.8 mg/dL (8.5-10.1); Chloride 96 mmol/L (98-107); Creatinine, Serum 1.17 mg/dL (0.70-1.30); EST Glomerular Filtration Rate 68 mL/min (>60); Est Glom Filt Rate - Afr Amer 82 mL/min (>60); Estimated Creatinine Clearance 70.19 ml/min; Globulin 4.7 g/dL (2.2-4.2); Glucose 104 mg/dL (74-106); Potassium 4.4 mmol/L (3.5-5.1); Protein, Total 8.6 g/dL (6.4-8.2); Sodium Level 135 mmol/L (136-145)
[2019-01-09 23:25] LABS: Differential Indicated SCAN CRITERIA MET; POSITIVE COUNT NO; POSITIVE DIFFERENTIAL YES; POSITIVE MORPHOLOGY NO
--- NOTE | 2019-01-09 23:50 | ED.VISSUMM ---
- ER Visit Summary Date of Service: 01/09/19 Chief Complaint: Alcohol withdrawal History of Present Illness: The patient is a 58 M here for alcohol withdrawal symptoms. States last drink to 3 days ago. Typically drinks 12 packs of beer per day. States nausea and vomiting with dry heaves is constant. Reports tremors increasing upper extremities. Denies alcohol withdrawal seizures. Denies any illicit drug use. Reports was admitted about a month ago stay for 4 days. He was referred [facility] to [facility], reports went there directly, had tremors, reports staffing called nursing the same day, patient was supposed to go back to the hospital however he states he did not. Reports ended up drinking alcohol. States he wants to stop drinking. Denies abdominal pain or chest pain. Upon undressing the patient nursing noted abscess left upper back, patient reports no stable week ago. Has had abscesses and drainage before. Denies fever. Physical Examination: General: Alert and oriented ?3, no acute distress. Sweating of forehead. HEENT: Normocephalic, atraumatic. Moist mucosa membranes Neck: supple, nontender. Cardiovascular: Regular tachycardic rate and rhythm, no murmurs Respiratory: Normal breath sounds, symmetric, no distress Abdomen: Soft, nontender, nondistended Extremities: Nontender, no edema, pulses intact ?4 Neuro: no focal neurological deficits. Bilateral upper extremity tremors with arm extension. Test Results: EKG sinus rate of 95 no acute changes. Hemoglobin 14.7. Creatinine 1.17. ALP 130, ALT 152, AST 141. Alcohol 44. Screen pending. Emergency Department Course and Treatment: Patient with a see was score of 19. Fluids Zofran and Ativan was given. Heart rate improved swelling improved tremors improved. Labs consistent with alcohol hepatitis. Alcohol is 44. He does have thrombocytopenia platelets 97 similar to previous. Abscesses back was drained with copious exudate. White count normal. Discussed with hospitalist Dr. Way, will admit to medical floor for further management. Heart rate, blood pressure stable. He stable for the medical floor. Treatment Plan: [] Disposition: Admission Impression: 1. Alcohol withdrawal 2. Thrombocytopenia 3. Alcoholic hepatitis 4. Back abscess status post incision and drainage This note was generated with [employer] dictation software. It may contain incorrect words, spelling, and punctuation that were not noted in review of the chart prior to signing ED Disposition - Plan for ED Patient: Disposition: Acute Care Hospital [facility] Diagnosis: Alcohol withdrawal, Thrombocytopenia, Alcoholic hepatitis, Back abscess Referrals: José Miguel Moses MD [Primary Care Provider] -
--- NOTE | 2019-01-09 23:53 | ED.DCSUM_ITS ---
- ER Visit Summary Date of Service: 01/09/19 Chief Complaint: Alcohol withdrawal History of Present Illness: The patient is a 58 M here for alcohol withdrawal symptoms. States last drink to 3 days ago. Typically drinks 12 packs of beer per day. States nausea and vomiting with dry heaves is constant. Reports tremors increasing upper extremities. Denies alcohol withdrawal seizures. Denies any illicit drug use. Reports was admitted about a month ago stay for 4 days. He was referred out to [facility], reports went there directly, had tremors, reports staffing called nursing the same day, patient was supposed to go back to the hospital however he states he did not. Reports ended up drinking alcohol. States he wants to stop drinking. Denies abdominal pain or chest pain. Upon undressing the patient nursing noted abscess left upper back, patient reports no stable week ago. Has had abscesses and drainage before. Denies fever. Physical Examination: General: Alert and oriented ?3, no acute distress. Sweating of forehead. HEENT: Normocephalic, atraumatic. Moist mucosa membranes Neck: supple, nontender. Cardiovascular: Regular tachycardic rate and rhythm, no murmurs Respiratory: Normal breath sounds, symmetric, no distress Abdomen: Soft, nontender, nondistended Extremities: Nontender, no edema, pulses intact ?4 Neuro: no focal neurological deficits. Bilateral upper extremity tremors with arm extension. Test Results: EKG sinus rate of 95 no acute changes. Hemoglobin 14.7. Creatinine 1.17. ALP 130, ALT 152, AST 141. Alcohol 44. Screen pending. Emergency Department Course and Treatment: Patient with a see was score of 19. Fluids Zofran and Ativan was given. Heart rate improved swelling improved tremors improved. Labs consistent with alcohol hepatitis. Alcohol is 44. He d oes have thrombocytopenia platelets 97 similar to previous. Abscesses back was drained with copious exudate. White count normal. Discussed with hospitalist Dr. Way, will admit to medical floor for further management. Heart rate, blood pressure stable. He stable for the medical floor. Treatment Plan: [] Disposition: Admission Impression: 1. Alcohol withdrawal 2. Thrombocytopenia 3. Alcoholic hepatitis 4. Back abscess status post incision and drainage This note was generated with [employer] dictation software. It may contain incorrect words, spelling, and punctuation that were not noted in review of the chart prior to signing ED Disposition - Plan for ED Patient: Disposition: Acute Care Hospital [facility] Diagnosis: Alcohol withdrawal, Thrombocytopenia, Alcoholic hepatitis, Back abscess Referrals: José Miguel Moses MD [Primary Care Provider] -
[2019-01-10] VITALS (7 sets, daily range): BP systolic 140–170; BP diastolic 85–100; PULSE 86–125; RESP 16–20; TEMP 37.2–37.4; O2SAT 94–97; BMI 32.3
--- NOTE | 2019-01-10 00:51 | PCM.HP.STD ---
Problem List (1) Alcohol withdrawal Status: Acute Qualifiers: Complication of substance-induced condition: with perceptual disturbance Qualified Code(s): F10.232 - Alcohol dependence with withdrawal with perceptual disturbance (2) CAD (coronary artery disease) Status: Chronic (3) HTN (hypertension) Status: Chronic (4) Alcoholic hepatitis Status: Acute (5) Thrombocytopenia Status: Acute History of Present Illness Date of Admission: 01/10/19 Chief Complaint: Alcohol abuse The patient is a 58 year old M with PMH as below who presents to the ER with alcohol withdrawal symptoms. He was recently discharged from the hospital at the end of November after completing [employer] and was sent 180 for outpatient management. He states on arrival he had some tremors and the staff at [facility] requested to go back to the hospital which he did not. He states that his last drink was about 2 to 3 days ago and he wants to quit drinking. He said before his recent admission to [facility] he was drinking about a 12 pack of beer daily, he does not admit to drinking that much the last couple of days. In the ER he was found to have thrombocytopenia, which is new as well as hepatitis which is fairly chronic. Past Medical History Past Medical History (Chronic Problems): Chronic Problems CAD (coronary artery disease) (Chronic) HTN (hypertension) (Chronic) COPD (chronic obstructive pulmonary disease) (Chronic) ETOH abuse (Chronic) Allergies amiodarone Allergy (Verified 01/09/19 21:17) Anaphylaxis Penicillins Allergy (Verified 01/09/19 21:17) Hives Home Medications: Ambulatory Orders Medication Instructions Recorded Metoprolol Tartrate 25 mg PO BID 12/11/18 Cyanocobalamin [Vitamin B12] 500 mcg PO DAILY@0800 #30 tablet 12/14/18 Folic Acid 1 mg PO DAILYCM #30 tablet 12/14/18 Lisinopril 20 mg PO DAILY #30 tablet 12/14/18 Multivitamins,Therapeutic 1 tablet PO DAILYCM #30 tablet 12/14/18 [Multivitamin] Thiamine Hydrochloride [Vitamin B1] 100 mg PO DAILYCM #30 tablet 12/14/18 Surgical History: coronary bypass surgery, - - cabg jun 2015 [facility] Smoking Status: Former smoker Tobacco Use: Cigarettes Alcohol: Heavy Drugs: None - *Family History Paternal History Items: Heart Disease Review of Systems Constitutional: Denies: Chills, Fever, Weight Change HEENT: Denies: Head Aches, Sinus Congestion, Sinus Drainage Cardiovascular: Denies: Chest Pain, Palpitations Respiratory: Denies: Cough, Shortness of breath at rest, Sputum production Gastrointestinal: Denies: Abdominal Pain, Nausea, Vomiting Genitourinary: Denies: Dysuria Musculoskeletal: Denies: Joint Pain, Joint Tenderness Skin: Denies: Rash, Wounds Neurological: Reports: Tremor. Denies: Focal weakness, Numbness, Tingling Psychiatric: Reports: Anxiety. Denies: Depression Hematologic/ Lymphatic: Denies: Easy Bruising, Easy Bleeding VTE Information - Inpt Only VTE Present on Admission: No - Physical Exam General: Alert, Oriented x3, Cooperative, No apparent distress, - - Tremoring HEENT: Atraumatic, PERRLA, EOMI, Normocephalic Oral: Dry Mucosa Neck: Supple, No JVD, Trachea Midline Lungs: Clear to auscultation, Normal air movement, No rhonchi, No wheeze, No rales Cardiovascular: Regular Rhythm, Normal S1, Normal S2, No murmurs, Tachycardic Abdomen: Soft, Non Tender, Non-Distended, No Hepato-splenomegaly Skin: No rashes, No breakdown, - - Sebaceous cyst on his back, I&D per ER Neurological: Neuro grossly intact, Sensory exam intact to light touch and pain Psych/Mental Status: Anxious, Restless Vital Signs Temp Pulse Resp BP Pulse Ox 97 F L 108 H 18 168/91 H 94 01/09/19 21:16 01/10/19 00:21 01/10/19 00:21 01/10/19 00:21 01/10/19 00:21 Oxygen Delivery Method Room Air Weight: 225 lb 1.471 oz Body Mass Index (BMI) 32.3 Laboratory Tests Past 24 Hrs 01/09/19 01/09/19 01/09/19 22:50 22:50 22:50 WBC 7.6 RBC 4.41 L Hgb 14.7 Hct 42.1 MCV 95.5 H MCH 33.3 H MCHC 34.9 RDW 13.5 RDW Differential 47.3 H Plt Count 97 L MPV 8.7 Immature Gran % (Auto) 0.100 Neut % (Auto) 86.2 H Lymph % (Auto) 7.9 L [place] % (Auto) 5.5 Eos % (Auto) 0.0 Baso % (Auto) 0.3 Absolute Neuts (auto) 6.5 Absolute Lymphs (auto) 0.60 L Total Counted Not Reportable Sodium 135 L Potassium 4.4 Chloride 96 L Carbon Dioxide 24.0 Anion Gap 15 BUN 10 Creatinine 1.17 Estim Creat Clear Calc 70.19 Est GFR (MDRD) Af Amer 82 Est GFR (MDRD) Non-Af 68 BUN/Creatinine Ratio 8.5 L Glucose 104 Calcium 8.8 Total Bilirubin 1.00 AST 141 H ALT 152 H Alkaline Phosphatase 130 H Total Protein 8.6 H Albumin 3.9 Globulin 4.7 H Albumin/Globulin Ratio 0.8 L Ethyl Alcohol 44.0 Assessment/Plan All Active Problems Alcohol withdrawal (Acute) Thrombocytopenia (Acute) Alcoholic hepatitis (Acute) Back abscess (Acute) Pancreatitis (Acute) Alcohol withdrawal (Acute) 1. Alcohol withdrawal/chronic alcoholic hepatitis/thrombocytopenia -Per the ER, CIWA of 19 he was given a dose of Ativan -Given his hepatitis, will provide an Ativan oral tapering to the Librium taper -As he is through his acute withdrawal episode liver ultrasound and evaluation for cirrhosis and hopefully recovery of his thrombocytopenia as an outpatient 2. HTN -His systolic blood pressures are greater than 160 likely secondary to his alcohol withdrawal -We will continue with his home medications of lisinopril and metoprolol DVT: Ambulation Code Visit Inpatient E&M: 81905 Init Hosp L2
[2019-01-10] MEDS: LORazepam 2 MG/ML Syringe 1 MG IV ×3 (01:15→08:48)
[2019-01-10] MEDS: Methocarbamol 750 MG Tablet PO (01:37)
[2019-01-10] MEDS: LORazepam 1 MG Tablet PO ×6 (01:37→21:06)
[2019-01-10] MEDS: hydrOXYzine PAM 25 MG Capsule 50 MG PO (01:37)
[2019-01-10] MEDS: 0.9% NaCl Peripheral Flush Adult/Peds IV ×3 (01:37→08:48)
[2019-01-10] MEDS: Dicyclomine 10 MG Capsule 20 MG PO (01:37)
[2019-01-10] MEDS: Ondansetron 4 MG/2 ML Vial IV (02:23)
[2019-01-10] MEDS: cloNIDine HCl 0.2 MG Tablet PO ×2 (02:23→21:06)
[2019-01-10 06:12] LABS: Amphetamine Urine VISTA NEGATIVE (<1000 ng/mL); Barbiturate Urine VISTA NEGATIVE (< 200 ng/mL); Benzodiazepine Urine VISTA NEGATIVE (< 200 ng/mL); Cocaine Urine VISTA NEGATIVE (< 300 ng/mL); Ecstacy Urine VISTA NEGATIVE (< 500 ng/mL); Methadone Urine VISTA NEGATIVE (< 300 ng/mL); PCP Urine VISTA NEGATIVE (< 25 ng/mL); THC Urine VISTA NEGATIVE (< 50 ng/mL); Vista UDS pH Range 6
--- NOTE | 2019-01-10 07:31 | US_ITS ---
STUDY: ABDOMINAL ULTRASOUND - RIGHT UPPER QUADRANT REASON FOR VISIT: Male, 58 years old. Elevated LFTs TECHNIQUE: Ultrasound evaluation of the right upper quadrant was performed with real-time and static flores-scale imaging. TECHNICAL QUALITY: Limited. Examination limited by bowel gas. COMPARISON: 11/21/2016 FINDINGS: Liver: The liver measures 17.1 cm. There is increased echogenicity consistent with fatty infiltration. The bile ducts are within normal limits. There is hepatic color flow. The direction of portal flow is hepatopetal. There is no demonstrated mass lesion. Gallbladder: Normal distended gallbladder. The gallbladder wall measures 1.8 mm. There is a negative sonographic Jacobs's sign. There is no pericholecystic fluid. There are no gallstones. Common Bile Duct (C.B.D.): The common bile duct measures 5.2 mm. Pancreas: There is nonvisualization of the pancreas. Right Kidney: Normal size of the right kidney. The right kidney measures 11.1 x 6.0 x 5.7 cm. Normal renal cortex. The right cortex measures 1.6 cm. There is no demonstrated renal mass or cyst. There is no right hydronephrosis. US/Abdomen Limited IMPRESSION: Fatty infiltration of liver, no discrete lesion Electronically Signed: Fletcher Cardoso MD at 15:14 EDT , Service support ,
[2019-01-10 08:24] LABS: Absolute Neutrophil Count 3.7 X10^3/uL (2.0-7.7); Basophil# 0.01 X10^3/uL; Basophil% 0.2 % (0-1); Hematocrit 38.4 % (40-54); Hemoglobin 12.6 g/dl (13.0-16.5); Lymphocyte % 15.4 % (19-41); Mean Corp Hgb Conc 32.8 g/gl (32-36); Mean Corpuscular Hgb 31.9 pg (27.0-32.0); Mean Corpuscular Volume 97.2 fL (80-94); Mean Platelet Vol. 9.2 fl (6.2-12.0); Monocyte# 0.65 X10^3/uL; Monocyte% 12.5 % (0-10); Neutrophil # 3.73 X10^3/uL (2.7-7.7); Neutrophil % 71.9 % (47-70); Platelet Count 89 K/mm3 (150-450); RBC Distribution Width CV 13.7 % (11.6-14.6); RBC Distribution Width SD 48.9 fl (35.1-43.9); Red Blood Count 3.95 M/mm3 (4.6-6.2); White Blood Count 5.2 K/mm3 (4.4-11.0)
[2019-01-10 08:28] LABS: POSITIVE COUNT NO; POSITIVE DIFFERENTIAL NO; POSITIVE MORPHOLOGY NO
[2019-01-10 08:29] LABS: International Normalized Ratio 1.2; Prothrombin Time (Protime)PT. 14.6 SECONDS (11.7-14.9)
--- NOTE | 2019-01-10 08:36 | PCM.HOSP.N ---
Hospitalist Note Seen and examined in the morning. The patient has a history of chronic alcohol use and withdrawal. Denies any history of withdrawal seizure. Patient also has history of skin/subcutaneous abscesses in the past and currently having abscess status post incision and drainage in ER on right periscapular region. It is about 4 cm. Dressing is stained with purulent discharge. Patient does not have hearing body. LFTs are elevated mainly transaminases. Repeat labs shows improvement in transaminases. GGT 320. Alk phos normal 108. Right upper quadrant sonogram ordered. Laboratory Results 01/09/19 22:50: WBC 7.6, RBC 4.41 L, Hgb 14.7, Hct 42.1, MCV 95.5 H, MCH 33.3 H, MCHC 34.9, RDW 13.5, RDW Differential 47.3 H, Plt Count 97 L, MPV 8.7, Immature Gran % (Auto) 0.100, Neut % (Auto) 86.2 H, Lymph % (Auto) 7.9 L, [place] % (Auto) 5.5, Eos % (Auto) 0.0, Baso % (Auto) 0.3, Absolute Neuts (auto) 6.5, Absolute Lymphs (auto) 0.60 L, Total Counted Not Reportable 01/09/19 22:50: Sodium 135 L, Potassium 4.4, Chloride 96 L, Carbon Dioxide 24.0, Anion Gap 15, BUN 10, Creatinine 1.17, Estim Creat Clear Calc 70.19, Est GFR (MDRD) Af Amer 82, Est GFR (MDRD) Non-Af 68, BUN/Creatinine Ratio 8.5 L, Glucose 104, Calcium 8.8, Total Bilirubin 1.00, AST 141 H, ALT 152 H, Alkaline Phosphatase 130 H, Total Protein 8.6 H, Albumin 3.9, Globulin 4.7 H, Albumin/Globulin Ratio 0.8 L 01/09/19 22:50: Ethyl Alcohol 44.0 01/10/19 05:45: Urine Opiates Screen NEGATIVE, Urine Methadone Screen NEGATIVE, Ur Barbiturates Screen NEGATIVE, Ur Phencyclidine Scrn NEGATIVE, Ur Amphetamines Screen NEGATIVE, U Methamphetamin-MDMA NEGATIVE, U Benzodiazepines Scrn NEGATIVE, Urine Cocaine Screen NEGATIVE, U Cannabinoids Screen NEGATIVE, Ur Drug Screen Comment 01/10/19 07:55: PT 14.6, INR 1.2 01/10/19 07:55: WBC 5.2, RBC 3.95 L, Hgb 12.6 L, Hct 38.4 L, MCV 97.2 H, MCH 31.9, MCHC 32.8, RDW 13.7, RDW Differential 48.9 H, Plt Count 89 L, MPV 9.2, Immature Gran % (Auto) 0.000, Neut % (Auto) 71.9 H, Lymph % (Auto) 15.4 L, [place] % (Auto) 12.5 H, Eos % (Auto) 0.0, Baso % (Auto) 0.2, Absolute Neuts (auto) 3.7, Absolute Lymphs (auto) 0.80 L, Total Counted Not Reportable 01/10/19 07:55: Sodium 135 L, Potassium 3.8, Chloride 99, Carbon Dioxide 26.0, Anion Gap 10, BUN 12, Creatinine 1.04, Estim Creat Clear Calc 78.97, Est GFR (MDRD) Af Amer 94, Est GFR (MDRD) Non-Af 78, BUN/Creatinine Ratio 11.5, Glucose 106, Calcium 8.1 L, Total Bilirubin 1.00, Direct Bilirubin 0.35 H, GGT 320 H, AST 105 H, ALT 119 H, Alkaline Phosphatase 108, Total Protein 7.3, Albumin 3.3, Globulin 4.0
[2019-01-10 08:40] LABS: AST(SGOT) 105 U/L (15-37); Alanine Aminotransfer ALT/SGPT 119 U/L (16-61); Albumin, Serum 3.3 g/dL (3.2-5.0); Alkaline Phosphatase 108 U/L (45-117); Anion Gap 10 (5-15); BUN 12 mg/dL (7-18); BUN/Creat Ratio 11.5 RATIO (10-20); Bilirubin, Direct 0.35 mg/dL (0.00-0.30); Calcium,Total 8.1 mg/dL (8.5-10.1); Chloride 99 mmol/L (98-107); Creatinine, Serum 1.04 mg/dL (0.70-1.30); EST Glomerular Filtration Rate 78 mL/min (>60); Est Glom Filt Rate - Afr Amer 94 mL/min (>60); Estimated Creatinine Clearance 78.97 ml/min; GGTP 320 U/L (15-85); Glucose 106 mg/dL (74-106); Potassium 3.8 mmol/L (3.5-5.1); Protein, Total 7.3 g/dL (6.4-8.2); Sodium Level 135 mmol/L (136-145)
[2019-01-10] MEDS: Thiamine Hydrochloride 100 MG Tablet PO (10:36)
[2019-01-10] MEDS: Folic Acid 1 MG Tablet PO (10:36)
[2019-01-10] MEDS: Multivitamins,Therapeutic Tablet 1 TABLET PO (10:37)
--- NOTE | 2019-01-10 10:44 | CASEMGMT ---
SW spoke w/Socorro from [facility], she states pt would like to go somewhere for inpt rehab until the 18 when he can go to [facility]. She asked SW to have pt sign releases for [facility] and other inpt units so referrals can be faxed. SW spoke w/pt in room in regard to plan, asked him to sign releases for [facility] and for other inpt units so we can send referrals. Pt states he plans to follow up at [facility] at discharge and he does not want to go anywhere inpt. Pt states he wants to go through the program here and then follow up at [facility] as an outpt. Pt states he wants to get back to work at [employer], states he is currently suspended but wants to go back to work there. Pt did sign release for [facility] but would not sign any additional releases for referrals to be sent to other inpt facilities. STANISLAW let Socorro from [employer] know that pt now is stating does not want inpt treatment at this time. BETHANY Murray
--- NOTE | 2019-01-10 10:50 | CASEMGMT ---
RN CM Assessment Presentation: ETOH withdrawal, Back abcess, I/D done. Intro role of CM and purpose of RN CM assessment. Noted pt is tremulous, appears anxious. RN CM asked if pt felt he was able to participate in assessment and pt agreed. Demographics, PCP and Pharmacy verified. PCP: Dr. Moses Preferred Pharmacy: [facility] Insurance: MMO Prescription Benefit: yes LNOK: Son, Apolinar Tracey Living Arrangements: pt lives independently, no care needs. Transportation: Pt states he drives and is able to f/u with physician on dc. DME: none HHC: none SW: Following for dc planning re: ETOH abuse. Patient DC goals: Home DC PLAN: Home, pt is declining ETOH rehab at this time. Abimbola NGUYENN RN ACM
--- NOTE | 2019-01-10 15:29 | NURSING ---
wound photo: left upper back
[2019-01-10] MEDS: traZODone 50 MG Tablet PO (21:05)
[2019-01-11 03:10] VITALS: BP 125/67; PULSE 95; RESP 16; TEMP 37.7
[2019-01-11] MEDS: LORazepam 1 MG Tablet PO ×4 (03:13→21:00)
[2019-01-11 07:06] LABS: Absolute Lymphocyte Count 0.93 X10^3/ul (0.83-4.51); Absolute Neutrophil Count 2.3 X10^3/uL (2.0-7.7); Basophil# 0.02 X10^3/uL; Basophil% 0.5 % (0-1); Eosinophil# 0.04 X10^3/uL; Eosinophils% 1.1 % (0-5); Hematocrit 38.3 % (40-54); Hemoglobin 12.7 g/dl (13.0-16.5); Lymphocyte # 0.93 X10^3/ul (4.0); Lymphocyte % 24.5 % (19-41); Mean Corp Hgb Conc 33.2 g/gl (32-36); Mean Corpuscular Hgb 32.2 pg (27.0-32.0); Mean Corpuscular Volume 97.2 fL (80-94); Mean Platelet Vol. 8.8 fl (6.2-12.0); Monocyte% 13.2 % (0-10); Neutrophil % 60.4 % (47-70); Platelet Count 83 K/mm3 (150-450); RBC Distribution Width CV 13.1 % (11.6-14.6); RBC Distribution Width SD 45.1 fl (35.1-43.9); Red Blood Count 3.94 M/mm3 (4.6-6.2); White Blood Count 3.8 K/mm3 (4.4-11.0)
[2019-01-11 07:08] LABS: POSITIVE COUNT NO; POSITIVE DIFFERENTIAL NO; POSITIVE MORPHOLOGY NO
[2019-01-11 07:31] LABS: AST(SGOT) 86 U/L (15-37); Alanine Aminotransfer ALT/SGPT 101 U/L (16-61); Albumin, Serum 3.1 g/dL (3.2-5.0); Alkaline Phosphatase 101 U/L (45-117); Anion Gap 7 (5-15); BUN 14 mg/dL (7-18); BUN/Creat Ratio 12.1 RATIO (10-20); Bilirubin, Direct 0.39 mg/dL (0.00-0.30); Calcium,Total 8.3 mg/dL (8.5-10.1); Chloride 99 mmol/L (98-107); Creatinine, Serum 1.16 mg/dL (0.70-1.30); EST Glomerular Filtration Rate 68 mL/min (>60); Est Glom Filt Rate - Afr Amer 83 mL/min (>60); Globulin 3.8 g/dL (2.2-4.2); Glucose 159 mg/dL (74-106); Potassium 3.2 mmol/L (3.5-5.1); Protein, Total 6.9 g/dL (6.4-8.2); Sodium Level 137 mmol/L (136-145)
[2019-01-11] MEDS: cloNIDine HCl 0.2 MG Tablet PO ×2 (07:50→17:35)
[2019-01-11] MEDS: Multivitamins,Therapeutic Tablet 1 TABLET PO (07:50)
[2019-01-11] MEDS: hydrOXYzine PAM 25 MG Capsule 50 MG PO ×2 (07:50→17:35)
[2019-01-11] MEDS: Thiamine Hydrochloride 100 MG Tablet PO (07:50)
[2019-01-11] MEDS: Folic Acid 1 MG Tablet PO (07:50)
--- NOTE | 2019-01-11 09:59 | PCM.PN.HOSP ---
Patient Problems: Active and Suspected Problems Alcohol withdrawal (Acute) Thrombocytopenia (Acute) Alcoholic hepatitis (Acute) Back abscess (Acute) Subjective: Patient seen and examined. He complains of increased weakness and tremors in his upper extremities. He wants a physical therapy consult on account of his weakness. Review of systems otherwise negative. Labs and vitals reviewed. Vitals/I&O's: Vital Signs Temp Pulse Resp BP Pulse Ox 99.9 F H 95 16 125/67 H 97 01/11/19 03:10 01/11/19 03:10 01/11/19 03:10 01/11/19 03:10 01/10/19 13:51 Oxygen Delivery Method Room Air Weight: 225 lb 1.471 oz Body Mass Index (BMI) 32.3 Intake and Output for Last 24 Hours 01/09/19 01/10/19 01/11/19 23:59 23:59 23:59 Intake Total 1000 / 1000 3600 / 3600 Output Total 1050 / 1050 3820 / 3820 Balance -50 / -50 -220 / -220 General: Alert, Oriented x3, Cooperative, No apparent distress HEENT: Atraumatic, PERRLA, EOMI, Normocephalic Oral: Moist Mucosa Neck: Supple, No JVD, Negative Carotid Bruits Lungs: Clear to auscultation, Normal air movement, No rhonchi, No wheeze, No rales Cardiovascular: Regular rate, Regular Rhythm, Normal S1, Normal S2, No murmurs Abdomen: Bowel Sounds Present, Soft, Non Tender, Non-Distended, No Hepato-splenomegaly Extremities: No clubbing, No cyanosis, No edema, Capillary Refill Less than 3 Seconds Skin: - - Has dressing on his upper back on account of I&D for abscess of his upper back. Musculoskeletal: No Tenderness to Palpation of Joints or Extremities Lymphatic: No Cervical, Supraclavicular, or Inguinal Adenopathy Neurological: Cranial nerves II-XII grossly intact, - - Moderate tremors of upper extremities. Psych/Mental Status: Normal Affect, Appropriate, Alert and oriented to time, place, person, mood and affect Laboratory Results 01/11/19 06:49: WBC 3.8 L, RBC 3.94 L, Hgb 12.7 L, Hct 38.3 L, MCV 97.2 H, MCH 32.2 H, MCHC 33.2, RDW 13.1, RDW Differential 45.1 H, Plt Count 83 L, MPV 8.8, Immature Gran % (Auto) 0.300, Neut % (Auto) 60.4, Lymph % (Auto) 24.5, [place] % (Auto) 13.2 H, Eos % (Auto) 1.1, Baso % (Auto) 0.5, Absolute Neuts (auto) 2.3, Absolute Lymphs (auto) 0.93, Total Counted Not Reportable 01/11/19 06:49: Sodium 137, Potassium 3.2 L, Chloride 99, Carbon Dioxide 31.0, Anion Gap 7, BUN 14, Creatinine 1.16, Estim Creat Clear Calc 70.80, Est GFR (MDRD) Af Amer 83, Est GFR (MDRD) Non-Af 68, BUN/Creatinine Ratio 12.1, Glucose 159 H, Calcium 8.3 L, Total Bilirubin 1.00, Direct Bilirubin 0.39 H, AST 86 H, ALT 101 H, Alkaline Phosphatase 101, Total Protein 6.9, Albumin 3.1 L, Globulin 3.8 Current Medications Al Hydroxide/Mg Hydroxide (Mylanta Ii) 30 ml PO Q6H PRN PRN PRN Reason: dyspesia Bisacodyl (Dulcolax) 10 mg RECTAL DAILY PRN PRN Reason: Constipation Clonidine (Catapres) 0.2 mg PO Q8H PRN PRN PRN Reason: hot cold sweats Last Admin: 01/11/19 07:50 Dose: 0.2 mg Dicyclomine HCl (Bentyl) 20 mg PO Q6H PRN PRN PRN Reason: abdominal discomfort Last Admin: 01/10/19 01:37 Dose: 20 mg Folic Acid (Folic Acid) 1 mg PO DAILYCM LIAM Stop: 01/12/19 08:01 Last Admin: 01/11/19 07:50 Dose: 1 mg Hydroxyzine Pamoate (Vistaril Pamoate Capsule) 50 mg PO Q6H PRN PRN PRN Reason: Mild Anxiety (score 1/3) Last Admin: 01/11/19 07:50 Dose: 50 mg Loperamide HCl (Imodium) 2 - 4 mg PO UD PRN PRN Reason: LOOSE STOOLS Lorazepam (Ativan) 1 mg IV Q2H PRN PRN PRN Reason: Severe Anxiety Last Admin: 01/10/19 08:48 Dose: 1 mg Lorazepam (Ativan) 2 mg IV X1 PRN PRN Reason: Seizure Lorazepam (Ativan) 1 mg PO Q6H [facility]; Taper Stop: 01/13/19 05:29 Last Admin: 01/11/19 03:13 Dose: 1 mg Methocarbamol (Methocarbamol) 750 mg PO Q6H PRN PRN PRN Reason: Muscle Aches Last Admin: 01/10/19 01:37 Dose: 750 mg [facility]) [facility] Last Admin: 01/11/19 07:50 Dose: 1 tablet Nutritional Formula (Lactose Free) (Ensure Enlive) 120 ml PO 4X/DAY [facility] Last Admin: 01/11/19 07:52 Dose: Not Given Ondansetron HCl (Zofran) 4 mg IV Q8H PRN PRN PRN Reason: NAUSEA/VOMITING Last Admin: 01/10/19 02:23 Dose: 4 mg Senna (Senokot) 1 tablet PO QHS PRN PRN Reason: Constipation Sodium Chloride () 5 - 15 ml IV UD PRN PRN Reason: SALINE FLUSH Last Admin: 01/10/19 08:48 Dose: 10 ml Thiamine HCl (Vitamin B1) [facility] Stop: 01/12/19 08:01 Last Admin: 01/11/19 07:50 Dose: 100 mg Trazodone HCl (Desyrel) 50 mg PO QHS [facility] Last Admin: 01/10/19 21:05 Dose: 50 mg Medical Necessity - Tobacco Use Smoking Status: Former smoker Tobacco Use: Cigarettes Assessment/Plan All Active Problems Alcohol withdrawal (Acute) Thrombocytopenia (Acute) Alcoholic hepatitis (Acute) Back abscess (Acute) Pancreatitis (Acute) Alcohol withdrawal (Acute) 1. Acute alcohol withdrawal CIWA score this morning is 7 on alcohol withdrawal protocol with ativan 2. Hypokalemia: K is 3.2 today. Will replace and monitor 3. Hyponatremia: Resolved. 4. Chronic alcoholic hepatitis: Direct bilirubin was mildly elevated and is 0.39 with AST of 86 and ALT of 101. Likely due to alcohol abuse. Abdominal ultrasound showed fatty liver with no discrete lesion. 5. Thrombocytopenia: Likely due to alcohol abuse. Platelets 83. Wants to. This is chronic. 6. Hypertension: on Lisinopril and metoprolol. BP was elevated with systolic up to 190s on admission. This was likely due to acute withdrawal phase from alcohol. Blood pressure now down to the 120 systolic. 7. Debility: Complains of generalized weakness. PT OT consulted. DVT prophylaxis: Encourage ambulation Code Visit Inpatient E&M: 57418 Subs Hosp L3
--- NOTE | 2019-01-11 10:04 | PN_ITS ---
Patient Problems: Active and Suspected Problems Alcohol withdrawal (Acute) Thrombocytopenia (Acute) Alcoholic hepatitis (Acute) Back abscess (Acute) Subjective: Patient seen and examined. He complains of increased weakness and tremors in his upper extremities. He wants a physical therapy consult on account of his weakness. Review of systems otherwise negative. Labs and vitals reviewed. Vitals/I&O's: Vital Signs Temp Pulse Resp BP Pulse Ox 99.9 F H 95 16 125/67 H 97 01/11/19 03:10 01/11/19 03:10 01/11/19 03:10 01/11/19 03:10 01/10/19 13:51 Oxygen Delivery Method Room Air Weight: 225 lb 1.471 oz Body Mass Index (BMI) 32.3 Intake and Output for Last 24 Hours 01/09/19 01/10/19 01/11/19 23:59 23:59 23:59 Intake Total 1000 / 1000 3600 / 3600 Output Total 1050 / 1050 3820 / 3820 Balance -50 / -50 -220 / -220 General: Alert, Oriented x3, Cooperative, No apparent distress HEENT: Atraumatic, PERRLA, EOMI, Normocephalic Oral: Moist Mucosa Neck: Supple, No JVD, Negative Carotid Bruits Lungs: Clear to auscultation, Normal air movement, No rhonchi, No wheeze, No rales Cardiovascular: Regular rate, Regular Rhythm, Normal S1, Normal S2, No murmurs Abdomen: Bowel Sounds Present, Soft, Non Tender, Non-Distended, No Hepato- splenomegaly Extremities: No clubbing, No cyanosis, No edema, Capillary Refill Less than 3 Seconds Skin: - - Has dressing on his upper back on account of I&D for abscess of his upper back. Musculoskeletal: No Tenderness to Palpation of Joints or Extremities Lymphatic: No Cervical, Supraclavicular, or Inguinal Adenopathy Neurological: Cranial nerves II-XII grossly intact, - - Moderate tremors of upper extremities. Psych/Mental Status: Normal Affect, Appropriate, Alert and oriented to time, place, person, mood and affect Laboratory Results 01/11/19 06:49: WBC 3.8 L, RBC 3.94 L, Hgb 12.7 L, Hct 38.3 L, MCV 97.2 H, MCH 32.2 H, MCHC 33.2, RDW 13.1, RDW Differential 45.1 H, Plt Count 83 L, MPV 8.8, Immature Gran % (Auto) 0.300, Neut % (Auto) 60.4, Lymph % (Auto) 24.5, [place] % (Auto) 13.2 H, Eos % (Auto) 1.1, Baso % (Auto) 0.5, Absolute Neuts (auto) 2.3, Absolute Lymphs (auto) 0.93, Total Counted Not Reportable 01/11/19 06:49: Sodium 137, Potassium 3.2 L, Chloride 99, Carbon Dioxide 31.0, Anion Gap 7, BUN 14, Creatinine 1.16, Estim Creat Clear Calc 70.80, Est GFR (MDRD) Af Amer 83, Est GFR (MDRD) Non-Af 68, BUN/Creatinine Ratio 12.1, Glucose 159 H, Calcium 8.3 L, Total Bilirubin 1.00, Direct Bilirubin 0.39 H, AST 86 H, ALT 101 H, Alkaline Phosphatase 101, Total Protein 6.9, Albumin 3.1 L, Globulin 3.8 Current Medications Al Hydroxide/Mg Hydroxide (Mylanta Ii) 30 ml PO Q6H PRN PRN PRN Reason: dyspesia Bisacodyl (Dulcolax) 10 mg RECTAL DAILY PRN PRN Reason: Constipation Clonidine (Catapres) 0.2 mg PO Q8H PRN PRN PRN Reason: hot cold sweats Last Admin: 01/11/19 07:50 Dose: 0.2 mg Dicyclomine HCl (Bentyl) 20 mg PO Q6H PRN PRN PRN Reason: abdominal discomfort Last Admin: 01/10/19 01:37 Dose: 20 mg Folic Acid (Folic Acid) 1 mg PO DAILYCM LIAM Stop: 01/12/19 08:01 Last Admin: 01/11/19 07:50 Dose: 1 mg Hydroxyzine Pamoate (Vistaril Pamoate Capsule) 50 mg PO Q6H PRN PRN PRN Reason: Mild Anxiety (score 1/3) Last Admin: 01/11/19 07:50 Dose: 50 mg Loperamide HCl (Imodium) 2 - 4 mg PO UD PRN PRN Reason: LOOSE STOOLS Lorazepam (Ativan) 1 mg IV Q2H PRN PRN PRN Reason: Severe Anxiety Last Admin: 01/10/19 08:48 Dose: 1 mg Lorazepam (Ativan) 2 mg IV X1 PRN PRN Reason: Seizure Lorazepam (Ativan) 1 mg PO Q6H [facility]; Taper Stop: 01/13/19 05:29 Last Admin: 01/11/19 03:13 Dose: 1 mg Methocarbamol (Methocarbamol) 750 mg PO Q6H PRN PRN PRN Reason: Muscle Aches Last Admin: 01/10/19 01:37 Dose: 750 mg Multivitamins (Multivitamin) [facility] Last Admin: 01/11/19 07:50 Dose: 1 tablet Nutritional Formula (Lactose Free) (Ensure Enlive) 120 ml PO 4X/DAY [facility] Last Admin: 01/11/19 07:52 Dose: Not Given Ondansetron HCl (Zofran) 4 mg IV Q8H PRN PRN PRN Reason: NAUSEA/VOMITING Last Admin: 01/10/19 02:23 Dose: 4 mg Senna (Senokot) 1 tablet PO QHS PRN PRN Reason: Constipation Sodium Chloride () 5 - 15 ml IV UD PRN PRN Reason: SALINE FLUSH Last Admin: 01/10/19 08:48 Dose: 10 ml Thiamine HCl (Vitamin B1) 100 [facility] Stop: 01/12/19 08:01 Last Admin: 01/11/19 07:50 Dose: 100 mg Trazodone HCl (Desyrel) 50 mg PO QHS [facility] Last Admin: 01/10/19 21:05 Dose: 50 mg Medical Necessity - Tobacco Use Smoking Status: Former smoker Tobacco Use: Cigarettes Assessment/Plan All Active Problems Alcohol withdrawal (Acute) Thrombocytopenia (Acute) Alcoholic hepatitis (Acute) Back abscess (Acute) Pancreatitis (Acute) Alcohol withdrawal (Acute) 1. Acute alcohol withdrawal * CIWA score this morning is 7 * on alcohol withdrawal protocol with ativan * 2. Hypokalemia: K is 3.2 today. Will replace and monitor 3. Hyponatremia: Resolved. 4. Chronic alcoholic hepatitis: * Direct bilirubin was mildly elevated and is 0.39 with AST of 86 and ALT of 101. Likely due to alcohol abuse. * Abdominal ultrasound showed fatty liver with no discrete lesion. * 5. Thrombocytopenia: Likely due to alcohol abuse. Platelets 83. Wants to. This is chronic. 6. Hypertension: * on Lisinopril and metoprolol. * BP was elevated with systolic up to 190s on admission. * This was likely due to acute withdrawal phase from alcohol. * Blood pressure now down to the 120 systolic. 7. Debility: Complains of generalized weakness. PT OT consulted. DVT prophylaxis: Encourage ambulation Code Visit Inpatient E&M: 11958 Subs Hosp L3
[2019-01-11 10:59] VITALS: BP 118/68; PULSE 82; RESP 18; TEMP 36.7
[2019-01-11 14:45] VITALS: BP 122/78; PULSE 67; RESP 18; TEMP 36.7; O2SAT 98
[2019-01-11 17:30] VITALS: BP 142/86; PULSE 100; RESP 18; TEMP 36.9
[2019-01-11] MEDS: Methocarbamol 750 MG Tablet PO (17:35)
[2019-01-11] MEDS: traZODone 50 MG Tablet PO (21:00)
[2019-01-11 21:02] VITALS: BP 151/95; PULSE 66; PULSE 95; RESP 16; RESP 18; TEMP 36.6; O2SAT 98
[2019-01-12] VITALS (11 sets, daily range): BP systolic 108–188; BP diastolic 48–114; PULSE 54–93; RESP 18–20; TEMP 36.6–36.8; O2SAT 96–98
[2019-01-12] MEDS: LORazepam 1 MG Tablet PO ×3 (05:10→21:24)
--- NOTE | 2019-01-12 05:11 | NURSING ---
BP elevated 188/106, had just returned from bathroom, visible tremor noted. Given Ativan at this time. Will recheck BP once pt less tremulous.
[2019-01-12] MEDS: cloNIDine HCl 0.2 MG Tablet PO (08:44)
[2019-01-12] MEDS: Folic Acid 1 MG Tablet PO (08:44)
[2019-01-12] MEDS: Multivitamins,Therapeutic Tablet 1 TABLET PO (08:44)
[2019-01-12] MEDS: hydrOXYzine PAM 25 MG Capsule 50 MG PO ×2 (08:45→18:21)
[2019-01-12] MEDS: Thiamine Hydrochloride 100 MG Tablet PO (08:45)
--- NOTE | 2019-01-12 09:16 | PCM.PN.HOSP ---
Patient Problems: Active and Suspected Problems Alcohol withdrawal (Acute) Thrombocytopenia (Acute) Alcoholic hepatitis (Acute) Back abscess (Acute) Subjective: Patient seen and examined. Had no complaints overnight. Review of systems otherwise negative. Vitals/I&O's: Vital Signs Temp Pulse Resp BP Pulse Ox 98.1 F 93 18 171/114 H 98 01/12/19 08:38 01/12/19 08:38 01/12/19 08:38 01/12/19 08:38 01/12/19 08:38 Oxygen Delivery Method Room Air Weight: 225 lb 1.471 oz Body Mass Index (BMI) 32.3 Intake and Output for Last 24 Hours 01/10/19 01/11/19 01/12/19 23:59 23:59 23:59 Intake Total 1000 / 1000 4200 / 4200 1400 / 1400 Output Total 1050 / 1050 3820 / 3820 Balance -50 / -50 380 / 380 1400 / 1400 General: Alert, Oriented x3, Cooperative, No apparent distress HEENT: Atraumatic, PERRLA, EOMI, Normocephalic Oral: Moist Mucosa Neck: Supple, No JVD, Negative Carotid Bruits Lungs: Clear to auscultation, Normal air movement, No rhonchi, No wheeze, No rales Cardiovascular: Regular rate, Regular Rhythm, Normal S1, Normal S2, No murmurs Abdomen: Bowel Sounds Present, Soft, Non Tender, Non-Distended, No Hepato-splenomegaly Extremities: No clubbing, No cyanosis, No edema, Capillary Refill Less than 3 Seconds Skin: - - Has dressing on his upper back on account of I&D for abscess of his upper back. Musculoskeletal: No Tenderness to Palpation of Joints or Extremities Lymphatic: No Cervical, Supraclavicular, or Inguinal Adenopathy Neurological: Cranial nerves II-XII grossly intact, - - Moderate tremors of upper extremities. Psych/Mental Status: Normal Affect, Appropriate, Alert and oriented to time, place, person, mood and affect Laboratory Results 01/12/19 08:23: Potassium Pending Current Medications Al Hydroxide/Mg Hydroxide (Mylanta Ii) 30 ml PO Q6H PRN PRN PRN Reason: dyspesia Bisacodyl (Dulcolax) 10 mg RECTAL DAILY PRN PRN Reason: Constipation Clonidine (Catapres) 0.2 mg PO Q8H PRN PRN PRN Reason: hot cold sweats Last Admin: 01/12/19 08:44 Dose: 0.2 mg Dicyclomine HCl (Bentyl) 20 mg PO Q6H PRN PRN PRN Reason: abdominal discomfort Last Admin: 01/10/19 01:37 Dose: 20 mg Hydroxyzine Pamoate (Vistaril Pamoate Capsule) 50 mg PO Q6H PRN PRN PRN Reason: Mild Anxiety (score 1/3) Last Admin: 01/12/19 08:45 Dose: 50 mg Loperamide HCl (Imodium) 2 - 4 mg PO UD PRN PRN Reason: LOOSE STOOLS Lorazepam (Ativan) 1 mg IV Q2H PRN PRN PRN Reason: Severe Anxiety Last Admin: 01/10/19 08:48 Dose: 1 mg Lorazepam (Ativan) 2 mg IV X1 PRN PRN Reason: Seizure Lorazepam (Ativan) 1 mg PO Q8H [facility]; Taper Stop: 01/13/19 05:29 Last Admin: 01/12/19 05:10 Dose: 1 mg Methocarbamol (Methocarbamol) 750 mg PO Q6H PRN PRN PRN Reason: Muscle Aches Last Admin: 01/11/19 17:35 Dose: 750 mg [facility] Last Admin: 01/12/19 08:44 Dose: 1 tablet Nutritional Formula (Lactose Free) (Ensure Enlive) 120 ml PO 4X/DAY [facility] Last Admin: 01/11/19 21:09 Dose: 120 ml Ondansetron HCl (Zofran) 4 mg IV Q8H PRN PRN PRN Reason: NAUSEA/VOMITING Last Admin: 01/10/19 02:23 Dose: 4 mg Senna (Senokot) 1 tablet PO QHS PRN PRN Reason: Constipation Sodium Chloride () 5 - 15 ml IV UD PRN PRN Reason: SALINE FLUSH Last Admin: 01/10/19 08:48 Dose: 10 ml Trazodone HCl (Desyrel) 50 mg PO QHS [facility] Last Admin: 01/11/19 21:00 Dose: 50 mg Medical Necessity - Tobacco Use Smoking Status: Former smoker Tobacco Use: Cigarettes Assessment/Plan All Active Problems Alcohol withdrawal (Acute) Thrombocytopenia (Acute) Alcoholic hepatitis (Acute) Back abscess (Acute) Pancreatitis (Acute) Alcohol withdrawal (Acute) 1. Acute alcohol withdrawal CIWA score this morning is 9 on alcohol withdrawal protocol with ativan 2. Hypokalemia: potassium is pending this morning. Will replace and monitor 3. Hyponatremia: Resolved. 4. Chronic alcoholic hepatitis: Direct bilirubin was mildly elevated and is 0.39 with AST of 86 and ALT of 101. Likely due to alcohol abuse. Abdominal ultrasound showed fatty liver with no discrete lesion. counselled to quit drinking 5. Thrombocytopenia: Likely due to alcohol abuse. stable. 6. Hypertension: on Lisinopril and metoprolol. yet to receive meds this morning; BP in 170s this morning, alcohol withdrawal likely plays a role. will monitor. IV hydralazine prn 7. Debility: Complains of generalized weakness. PT OT on board; recommend additional therapy at discharge. Case management to evaluate patient tomorrow; he will likely need home health at the very least. DVT prophylaxis: Encourage ambulation Disposition: for likely DC home tomorrow. Code Visit Inpatient E&M: 15421 Subs Hosp L2
--- NOTE | 2019-01-12 09:20 | PN_ITS ---
Patient Problems: Active and Suspected Problems Alcohol withdrawal (Acute) Thrombocytopenia (Acute) Alcoholic hepatitis (Acute) Back abscess (Acute) Subjective: Patient seen and examined. Had no complaints overnight. Review of systems otherwise negative. Vitals/I&O's: Vital Signs Temp Pulse Resp BP Pulse Ox 98.1 F 93 18 171/114 H 98 01/12/19 08:38 01/12/19 08:38 01/12/19 08:38 01/12/19 08:38 01/12/19 08:38 Oxygen Delivery Method Room Air Weight: 225 lb 1.471 oz Body Mass Index (BMI) 32.3 Intake and Output for Last 24 Hours 01/10/19 01/11/19 01/12/19 23:59 23:59 23:59 Intake Total 1000 / 1000 4200 / 4200 1400 / 1400 Output Total 1050 / 1050 3820 / 3820 Balance -50 / -50 380 / 380 1400 / 1400 General: Alert, Oriented x3, Cooperative, No apparent distress HEENT: Atraumatic, PERRLA, EOMI, Normocephalic Oral: Moist Mucosa Neck: Supple, No JVD, Negative Carotid Bruits Lungs: Clear to auscultation, Normal air movement, No rhonchi, No wheeze, No rales Cardiovascular: Regular rate, Regular Rhythm, Normal S1, Normal S2, No murmurs Abdomen: Bowel Sounds Present, Soft, Non Tender, Non-Distended, No Hepato- splenomegaly Extremities: No clubbing, No cyanosis, No edema, Capillary Refill Less than 3 Seconds Skin: - - Has dressing on his upper back on account of I&D for abscess of his upper back. Musculoskeletal: No Tenderness to Palpation of Joints or Extremities Lymphatic: No Cervical, Supraclavicular, or Inguinal Adenopathy Neurological: Cranial nerves II-XII grossly intact, - - Moderate tremors of upper extremities. Psych/Mental Status: Normal Affect, Appropriate, Alert and oriented to time, place, person, mood and affect Laboratory Results 01/12/19 08:23: Potassium Pending Current Medications Al Hydroxide/Mg Hydroxide (Mylanta Ii) 30 ml PO Q6H PRN PRN PRN Reason: dyspesia Bisacodyl (Dulcolax) 10 mg RECTAL DAILY PRN PRN Reason: Constipation Clonidine (Catapres) 0.2 mg PO Q8H PRN PRN PRN Reason: hot cold sweats Last Admin: 01/12/19 08:44 Dose: 0.2 mg Dicyclomine HCl (Bentyl) 20 mg PO Q6H PRN PRN PRN Reason: abdominal discomfort Last Admin: 01/10/19 01:37 Dose: 20 mg Hydroxyzine Pamoate (Vistaril Pamoate Capsule) 50 mg PO Q6H PRN PRN PRN Reason: Mild Anxiety (score 1/3) Last Admin: 01/12/19 08:45 Dose: 50 mg Loperamide HCl (Imodium) 2 - 4 mg PO UD PRN PRN Reason: LOOSE STOOLS Lorazepam (Ativan) 1 mg IV Q2H PRN PRN PRN Reason: Severe Anxiety Last Admin: 01/10/19 08:48 Dose: 1 mg Lorazepam (Ativan) 2 mg IV X1 PRN PRN Reason: Seizure Lorazepam (Ativan) 1 mg PO Q8H [facility]; Taper Stop: 01/13/19 05:29 Last Admin: 01/12/19 05:10 Dose: 1 mg Methocarbamol (Methocarbamol) 750 mg PO Q6H PRN PRN PRN Reason: Muscle Aches Last Admin: 01/11/19 17:35 Dose: 750 mg Multivit[facility] ([facility]amin) [facility] Last Admin: 01/12/19 08:44 Dose: 1 tablet Nutritional Formula (Lactose Free) (Ensure Enlive) 120 ml PO 4X/DAY [facility] Last Admin: 01/11/19 21:09 Dose: 120 ml Ondansetron HCl (Zofran) 4 mg IV Q8H PRN PRN PRN Reason: NAUSEA/VOMITING Last Admin: 01/10/19 02:23 Dose: 4 mg Senna (Senokot) 1 tablet PO QHS PRN PRN Reason: Constipation Sodium Chloride () 5 - 15 ml IV UD PRN PRN Reason: SALINE FLUSH Last Admin: 01/10/19 08:48 Dose: 10 ml Trazodone HCl (Desyrel) 50 mg PO QHS [facility] Last Admin: 01/11/19 21:00 Dose: 50 mg Medical Necessity - Tobacco Use Smoking Status: Former smoker Tobacco Use: Cigarettes Assessment/Plan All Active Problems Alcohol withdrawal (Acute) Thrombocytopenia (Acute) Alcoholic hepatitis (Acute) Back abscess (Acute) Pancreatitis (Acute) Alcohol withdrawal (Acute) 1. Acute alcohol withdrawal * CIWA score this morning is 9 * on alcohol withdrawal protocol with ativan * 2. Hypokalemia: potassium is pending this morning. Will replace and monitor 3. Hyponatremia: Resolved. 4. Chronic alcoholic hepatitis: * Direct bilirubin was mildly elevated and is 0.39 with AST of 86 and ALT of 101. Likely due to alcohol abuse. * Abdominal ultrasound showed fatty liver with no discrete lesion. * counselled to quit drinking * 5. Thrombocytopenia: Likely due to alcohol abuse. stable. 6. Hypertension: * on Lisinopril and metoprolol. * yet to receive meds this morning; BP in 170s this morning, alcohol withdrawal likely plays a role. * will monitor. IV hydralazine prn * 7. Debility: * Complains of generalized weakness. * PT OT on board; recommend additional therapy at discharge. * Case management to evaluate patient tomorrow; he will likely need home health at the very least. DVT prophylaxis: Encourage ambulation Disposition: for likely DC home tomorrow. Code Visit Inpatient E&M: 93796 Subs Hosp L2
[2019-01-12] MEDS: Lisinopril 20 MG Tablet PO (10:28)
[2019-01-12] MEDS: Metoprolol Tartrate 25 MG Tablet PO ×2 (10:28→22:34)
[2019-01-12] MEDS: Loperamide 2 MG Capsule PO (14:16)
[2019-01-12] MEDS: Dicyclomine 10 MG Capsule 20 MG PO (14:17)
[2019-01-12] MEDS: traZODone 50 MG Tablet PO (21:25)
[2019-01-13] VITALS (11 sets, daily range): BP systolic 131–160; BP diastolic 76–92; PULSE 62–93; RESP 16–18; TEMP 36.3–37.2; O2SAT 96–98
--- NOTE | 2019-01-13 08:38 | DS.PCM_ITS ---
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 Patient also had an abscess about 4 cm in the right periscapular area for which he had incision and drainage in ER. 1. Acute alcohol withdrawal * CIWA score this morning is 4. * on alcohol withdrawal protocol with ativan 2. Hypokalemia: Resolved. K4.2 3. Hyponatremia: Resolved. 4. Chronic alcoholic hepatitis: * Direct bilirubin was mildly elevated 0.39 with AST of 86 and ALT of 101. Likely due to alcohol abuse. * Abdominal ultrasound showed fatty liver with no discrete lesion. * counselled to quit drinking 5. Thrombocytopenia: Likely due to alcohol abuse. stable. 6. Hypertension: * on Lisinopril and metoprolol. * monitor. IV hydralazine prn 7. Debility with unsteady gait: * Complains of generalized weakness and secondary to chronic alcohol use and dependence. * PT OT. It has physical therapy and Occupational Therapy. Recommended no further therapy at the time of discharge. Walker was given to help with unsteady gait. DVT prophylaxis: Encourage ambulation. Bilateral SCDs. Pharmacological prophylaxis contraindicated in view of thrombocytopenia 83,000. Discharge medication reconciliation done. Discharge follow-up instructions com pleted. Discharge process discussed with the patient and all questions were answered to patient's satisfaction. Total time spent, exact 35 minutes on discharge meds reconciliation, examination, review of imaging and blood test and discussion with the patient on follow-up instructions. Subjective: Patient wants to go home. Patient has fine tremors but overall alcohol withdrawal symptoms are much better. CIWA score 4. Seen by PT and OT recommended no further therapy but walker was given to help with unsteady gait. Objective: General: Alert, Oriented x3, Cooperative HEENT: Atraumatic, PERRLA, EOMI, Normocephalic Neck: Supple, No JVD, Negative Carotid Bruits Lungs: Clear to auscultation, No rhonchi, No wheeze, air entry bilaterally diminished Cardiovascular: Regular rate, Regular Rhythm, Normal S1, Normal S2, No murmurs Abdomen: Bowel Sounds Present, Soft, Non Tender, Non-Distended Extremities: No edema, Capillary Refill Less than 3 Seconds. Skin: No rashes, No breakdown, Ulcer/ Wound - Patient also has history of skin/subcutaneous abscesses in the past and currently abscess status post incision and drainage in ER on right periscapular region. It was about 4 cm. No redness or tenderness surrounding the incision. Mild induration much improved Musculoskeletal: No Tenderness to Palpation of Joints or Extremities, Arthritic Changes Neurological: Cranial nerves II-XII grossly intact, Deep Tendon Reflexes 2+/4 and Symmetrical, Neuro grossly intact, mild fine tremors of finger. Unsteady gait but is better Psych/Mental Status: Normal Affect, Appropriate - Physical Exam Vital Signs Temp Pulse Resp BP Pulse Ox 98 F 62 18 143/87 H 97 01/13/19 05:02 01/13/19 05:02 01/13/19 05:02 01/13/19 05:02 01/13/19 05:02 Oxygen Delivery Method Room Air Weight: 225 lb 1.471 oz Body Mass Index (BMI) 32.3 Intake and Output for Last 24 Hours 01/11/19 01/12/19 01/13/19 23:59 23:59 23:59 Intake Total 4200 / 4200 2470 / 2470 200 / 200 Output Total 3820 / 3820 Balance 380 / 380 2470 / 2470 200 / 200 Laboratory Tests Past 24 Hrs 01/12/19 08:23 Potassium 4.0 Discharge Activity: May Not Drive Call your doctor if you observe: Fever of 101 or Higher, Inability to urinate, Inability to have a bowel movement, Shortness of breath, Dizziness, Fainting spells, Increased palpitations (irregular heartbeat) Home Medications: Medications to take at Discharge Metoprolol Tartrate 25 mg PO BID 12/11/18 Lisinopril 20 mg PO DAILY 01/10/19 Multivitamins,Therapeutic [Multivitamin] 1 tablet PO DAILYCM tablet 01/13/19 Primary Care Physician: José Miguel Moses MD [Primary Care Provider] - Please follow up with your Primary Care Physician in: in 1-2 week Medical Necessity - Tobacco Use Smoking Status: Former smoker Tobacco Use: Cigarettes Meaningful Use Info Meaningful Use Diagnoses (Choose all that apply): None applicable Code Visit Inpatient E&M: 44271 Disch Hosp
--- NOTE | 2019-01-13 08:38 | DCINST_ITS ---
- Discharge Diagnoses Current Active Problems: Current Active and Chronic Problems Alcohol withdrawal (Acute) Thrombocytopenia (Acute) Alcoholic hepatitis (Acute) Back abscess (Acute) You will use the following diet at home:: Cardiac Your food should be the consistency of: Regular Discharge Activity: May Not Drive Call your doctor if you observe: Fever of 101 or Higher, Inability to urinate, Inability to have a bowel movement, Shortness of breath, Dizziness, Fainting spells, Increased palpitations (irregular heartbeat) Additional Instructions: [facility] Allergies/Adverse Reactions: Allergies amiodarone Allergy (Verified 01/09/19 21:17) Anaphylaxis Penicillins Allergy (Verified 01/09/19 21:17) Hives Medications to take at Discharge Metoprolol Tartrate 25 mg PO BID 12/11/18 Lisinopril 20 mg PO DAILY 01/10/19 Multivitamins,Therapeutic [Multivitamin] 1 tablet PO DAILYCM tablet 01/13/19 Primary Care Physician: José Miguel Moses MD [Primary Care Provider] - Please follow up with your Primary Care Physician in: in 1-2 week Test Results: Test results from this visit will be discussed in further detail at your follow- up appointment, if applicable.
[2019-01-13] MEDS: Lisinopril 20 MG Tablet PO (08:41)
[2019-01-13] MEDS: Multivitamins,Therapeutic Tablet 1 TABLET PO (08:41)
[2019-01-13] MEDS: Metoprolol Tartrate 25 MG Tablet PO ×2 (08:41→21:17)
[2019-01-13] MEDS: hydrOXYzine PAM 25 MG Capsule 50 MG PO (08:44)
--- NOTE | 2019-01-13 10:06 | NURSING ---
DAYSI Ram had just changed the left upper back dressing. states there was no drainage. area is still rounded and firm. patient denies discomfort.
--- NOTE | 2019-01-13 11:15 | NEWVISION ---
[facility] saw this patient and patient denied needing further assistance with referrals. patient states he is an active client of [facility] and will continue on with them for outpatient services.
--- NOTE | 2019-01-13 14:11 | CASEMGMT ---
DAYSI MCCURDY Note: pt is being discharged today. DAYSI MCCURDY spoke with pt re: outpt therapy. Pt declined stating he does not feel he needs. DAYSI MCCURDY let pt know to contact PCP if he reconsiders at home. Abimbola PAREDES RN ACM
--- NOTE | 2019-01-13 14:28 | PCM.PN.HOSP ---
Patient Problems: Active and Suspected Problems Alcohol withdrawal (Acute) Thrombocytopenia (Acute) Alcoholic hepatitis (Acute) Back abscess (Acute) Subjective: Patient is still very shaky and unstable on gait. Feels a bit dizzy on standing up get exacerbated when walking few steps. Wound on the back is healing. Small listed on the dressing but no obvious discharge from the wound. Vitals/I&O's: Vital Signs Temp Pulse Resp BP Pulse Ox 97.4 F L 93 18 131/90 H 98 01/13/19 14:00 01/13/19 14:00 01/13/19 14:00 01/13/19 14:00 01/13/19 11:00 Oxygen Delivery Method Room Air Weight: 225 lb 1.471 oz Body Mass Index (BMI) 32.3 Intake and Output for Last 24 Hours 01/11/19 01/12/19 01/13/19 23:59 23:59 23:59 Intake Total 4200 / 4200 2470 / 2470 560 / 560 Output Total 3820 / 3820 Balance 380 / 380 2470 / 2470 560 / 560 General: Alert, Oriented x3, Cooperative HEENT: Atraumatic, PERRLA, EOMI, Normocephalic Neck: Supple, No JVD, Negative Carotid Bruits Lungs: Clear to auscultation, No rhonchi, No wheeze, Diminished Cardiovascular: Regular rate, Regular Rhythm, Normal S1, Normal S2, No murmurs Abdomen: Bowel Sounds Present, Soft, Non Tender, Non-Distended Extremities: No edema, Capillary Refill Less than 3 Seconds Skin: No rashes, No breakdown, Ulcer/ Wound - Patient also has history of skin/subcutaneous abscesses in the past and currently having abscess status post incision and drainage in ER on right periscapular region. It is about 4 cm. No redness or tenderness surrounding the incision. Mild induration present Musculoskeletal: No Tenderness to Palpation of Joints or Extremities, Arthritic Changes Neurological: Cranial nerves II-XII grossly intact, Deep Tendon Reflexes 2+/4 and Symmetrical, Neuro grossly intact, Unsteady Gait Psych/Mental Status: Normal Affect, Appropriate Current Medications Al Hydroxide/Mg Hydroxide (Mylanta Ii) 30 ml PO Q6H PRN PRN PRN Reason: dyspesia Bisacodyl (Dulcolax) 10 mg RECTAL DAILY PRN PRN Reason: Constipation Clonidine (Catapres) 0.2 mg PO Q8H PRN PRN PRN Reason: hot cold sweats Last Admin: 01/12/19 08:44 Dose: 0.2 mg Dicyclomine HCl (Bentyl) 20 mg PO Q6H PRN PRN PRN Reason: abdominal discomfort Last Admin: 01/12/19 14:17 Dose: 20 mg Hydroxyzine Pamoate (Vistaril Pamoate Capsule) 50 mg PO Q6H PRN PRN PRN Reason: Mild Anxiety (score 1/3) Last Admin: 01/13/19 08:44 Dose: 50 mg Lisinopril (Zestril) 20 mg PO DAILY [facility] Last Admin: 01/13/19 08:41 Dose: 20 mg Loperamide HCl (Imodium) 2 - 4 mg PO UD PRN PRN Reason: LOOSE STOOLS Last Admin: 01/12/19 14:16 Dose: 2 mg Lorazepam (Ativan) 1 mg IV Q2H PRN PRN PRN Reason: Severe Anxiety Last Admin: 01/10/19 08:48 Dose: 1 mg Lorazepam (Ativan) 2 mg IV X1 PRN PRN Reason: Seizure Methocarbamol (Methocarbamol) 750 mg PO Q6H PRN PRN PRN Reason: Muscle Aches Last Admin: 01/11/19 17:35 Dose: 750 mg Metoprolol Tartrate (Lopressor (Beta Reginaldo)) 25 mg PO BID [facility] Last Admin: 01/13/19 08:41 Dose: 25 mg [facility]it[facility] ([facility]) [facility] Last Admin: 01/13/19 08:41 Dose: 1 tablet Nutritional Formula (Lactose Free) (Ensure Enlive) 120 ml PO 4X/DAY [facility] Last Admin: 01/13/19 14:20 Dose: 120 ml Ondansetron HCl (Zofran) 4 mg IV Q8H PRN PRN PRN Reason: NAUSEA/VOMITING Last Admin: 01/10/19 02:23 Dose: 4 mg Senna (Senokot) 1 tablet PO QHS PRN PRN Reason: Constipation Sodium Chloride () 5 - 15 ml IV UD PRN PRN Reason: SALINE FLUSH Last Admin: 01/10/19 08:48 Dose: 10 ml Trazodone HCl (Desyrel) 50 mg PO QHS [facility] Last Admin: 01/12/19 21:25 Dose: 50 mg Medical Necessity - Tobacco Use Smoking Status: Former smoker Tobacco Use: Cigarettes Assessment/Plan All Active Problems Alcohol withdrawal (Acute) Thrombocytopenia (Acute) Alcoholic hepatitis (Acute) Back abscess (Acute) Pancreatitis (Acute) Alcohol withdrawal (Acute) This is a 58-year-old gentleman who was admitted with acute alcohol withdrawal with shaking, tremors and gait instability. Patient also had an abscess about 4 cm in the right periscapular area for which he had incision and drainage in ER. 1. Acute alcohol withdrawal CIWA score this morning is 4 on alcohol withdrawal protocol with ativan 2. Hypokalemia: Resolved. K4.0 3. Hyponatremia: Resolved. 4. Chronic alcoholic hepatitis: Direct bilirubin was mildly elevated 0.39 with AST of 86 and ALT of 101. Likely due to alcohol abuse. Abdominal ultrasound showed fatty liver with no discrete lesion. counselled to quit drinking 5. Thrombocytopenia: Likely due to alcohol abuse. stable. 6. Hypertension: on Lisinopril and metoprolol. monitor. IV hydralazine prn 7. Debility: Complains of generalized weakness. PT OT on board; recommend additional therapy at discharge. Case management to evaluate patient tomorrow; he will likely need home health at the very least. DVT prophylaxis: Encourage ambulation. Bilateral SCDs. Pharmacological prophylaxis contraindicated in view of thrombocytopenia 83,000. ATN OT ordered. Code Visit Inpatient E&M: 27605 Subs Hosp L2
--- NOTE | 2019-01-13 14:35 | PN_ITS ---
Patient Problems: Active and Suspected Problems Alcohol withdrawal (Acute) Thrombocytopenia (Acute) Alcoholic hepatitis (Acute) Back abscess (Acute) Subjective: Patient is still very shaky and unstable on gait. Feels a bit dizzy on standing up get exacerbated when walking few steps. Wound on the back is healing. Small listed on the dressing but no obvious discharge from the wound. Vitals/I&O's: Vital Signs Temp Pulse Resp BP Pulse Ox 97.4 F L 93 18 131/90 H 98 01/13/19 14:00 01/13/19 14:00 01/13/19 14:00 01/13/19 14:00 01/13/19 11:00 Oxygen Delivery Method Room Air Weight: 225 lb 1.471 oz Body Mass Index (BMI) 32.3 Intake and Output for Last 24 Hours 01/11/19 01/12/19 01/13/19 23:59 23:59 23:59 Intake Total 4200 / 4200 2470 / 2470 560 / 560 Output Total 3820 / 3820 Balance 380 / 380 2470 / 2470 560 / 560 General: Alert, Oriented x3, Cooperative HEENT: Atraumatic, PERRLA, EOMI, Normocephalic Neck: Supple, No JVD, Negative Carotid Bruits Lungs: Clear to auscultation, No rhonchi, No wheeze, Diminished Cardiovascular: Regular rate, Regular Rhythm, Normal S1, Normal S2, No murmurs Abdomen: Bowel Sounds Present, Soft, Non Tender, Non-Distended Extremities: No edema, Capillary Refill Less than 3 Seconds Skin: No rashes, No breakdown, Ulcer/ Wound - Patient also has history of skin/subcutaneous abscesses in the past and currently having abscess status post incision and drainage in ER on right periscapular region. It is about 4 cm. No redness or tenderness surrounding the incision. Mild induration present Musculoskeletal: No Tenderness to Palpation of Joints or Extremities, Arthritic Changes Neurological: Cranial nerves II-XII grossly intact, Deep Tendon Reflexes 2+/4 and Symmetrical, Neuro grossly intact, Unsteady Gait Psych/Mental Status: Normal Affect, Appropriate Current Medications Al Hydroxide/Mg Hydroxide (Mylanta Ii) 30 ml PO Q6H PRN PRN PRN Reason: dyspesia Bisacodyl (Dulcolax) 10 mg RECTAL DAILY PRN PRN Reason: Constipation Clonidine (Catapres) 0.2 mg PO Q8H PRN PRN PRN Reason: hot cold sweats Last Admin: 01/12/19 08:44 Dose: 0.2 mg Dicyclomine HCl (Bentyl) 20 mg PO Q6H PRN PRN PRN Reason: abdominal discomfort Last Admin: 01/12/19 14:17 Dose: 20 mg Hydroxyzine Pamoate (Vistaril Pamoate Capsule) 50 mg PO Q6H PRN PRN PRN Reason: Mild Anxiety (score 1/3) Last Admin: 01/13/19 08:44 Dose: 50 mg Lisinopril (Zestril) 20 mg PO DAILY [facility] Last Admin: 01/13/19 08:41 Dose: 20 mg Loperamide HCl (Imodium) 2 - 4 mg PO UD PRN PRN Reason: LOOSE STOOLS Last Admin: 01/12/19 14:16 Dose: 2 mg Lorazepam (Ativan) 1 mg IV Q2H PRN PRN PRN Reason: Severe Anxiety Last Admin: 01/10/19 08:48 Dose: 1 mg Lorazepam (Ativan) 2 mg IV X1 PRN PRN Reason: Seizure Methocarbamol (Methocarbamol) 750 mg PO Q6H PRN PRN PRN Reason: Muscle Aches Last Admin: 01/11/19 17:35 Dose: 750 mg Metoprolol Tartrate (Lopressor (Beta Reginaldo)) 25 mg PO BID [facility] Last Admin: 01/13/19 08:41 Dose: 25 mg [facility] Last Admin: 01/13/19 08:41 Dose: 1 tablet Nutritional Formula (Lactose Free) (Ensure Enlive) 120 ml PO 4X/DAY [facility] Last Admin: 01/13/19 14:20 Dose: 120 ml Ondansetron HCl (Zofran) 4 mg IV Q8H PRN PRN PRN Reason: NAUSEA/VOMITING Last Admin: 01/10/19 02:23 Dose: 4 mg Senna (Senokot) 1 tablet PO QHS PRN PRN Reason: Constipation Sodium Chloride () 5 - 15 ml IV UD PRN PRN Reason: SALINE FLUSH Last Admin: 01/10/19 08:48 Dose: 10 ml Trazodone HCl (Desyrel) 50 mg PO QHS [facility] Last Admin: 01/12/19 21:25 Dose: 50 mg Medical Necessity - Tobacco Use Smoking Status: Former smoker Tobacco Use: Cigarettes Assessment/Plan All Active Problems Alcohol withdrawal (Acute) Thrombocytopenia (Acute) Alcoholic hepatitis (Acute) Back abscess (Acute) Pancreatitis (Acute) Alcohol withdrawal (Acute) This is a 58-year-old gentleman who was admitted with acute alcohol withdrawal with shaking, tremors and gait instability. Patient also had an abscess about 4 cm in the right periscapular area for which he had incision and drainage in ER. 1. Acute alcohol withdrawal * CIWA score this morning is 4 * on alcohol withdrawal protocol with ativan 2. Hypokalemia: Resolved. K4.0 3. Hyponatremia: Resolved. 4. Chronic alcoholic hepatitis: * Direct bilirubin was mildly elevated 0.39 with AST of 86 and ALT of 101. Likely due to alcohol abuse. * Abdominal ultrasound showed fatty liver with no discrete lesion. * counselled to quit drinking 5. Thrombocytopenia: Likely due to alcohol abuse. stable. 6. Hypertension: * on Lisinopril and metoprolol. * monitor. IV hydralazine prn 7. Debility: * Complains of generalized weakness. * PT OT on board; recommend additional therapy at discharge. * Case management to evaluate patient tomorrow; he will likely need home health at the very least. DVT prophylaxis: Encourage ambulation. Bilateral SCDs. Pharmacological prophylaxis contraindicated in view of thrombocytopenia 83,000. ATN OT ordered. Code Visit Inpatient E&M: 25806 Subs Hosp L2
--- NOTE | 2019-01-13 14:36 | PCM.DC.SUM ---
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 Patient also had an abscess about 4 cm in the right periscapular area for which he had incision and drainage in ER. 1. Acute alcohol withdrawal CIWA score this morning is 4. on alcohol withdrawal protocol with ativan 2. Hypokalemia: Resolved. K4.2 3. Hyponatremia: Resolved. 4. Chronic alcoholic hepatitis: Direct bilirubin was mildly elevated 0.39 with AST of 86 and ALT of 101. Likely due to alcohol abuse. Abdominal ultrasound showed fatty liver with no discrete lesion. counselled to quit drinking 5. Thrombocytopenia: Likely due to alcohol abuse. stable. 6. Hypertension: on Lisinopril and metoprolol. monitor. IV hydralazine prn 7. Debility with unsteady gait: Complains of generalized weakness and secondary to chronic alcohol use and dependence. PT OT. It has physical therapy and Occupational Therapy. Recommended no further therapy at the time of discharge. Walker was given to help with unsteady gait. DVT prophylaxis: Encourage ambulation. Bilateral SCDs. Pharmacological prophylaxis contraindicated in view of thrombocytopenia 83,000. Discharge medication reconciliation done. Discharge follow-up instructions completed. Discharge process discussed with the patient and all questions were answered to patient's satisfaction. Total time spent, exact 35 minutes on discharge meds reconciliation, examination, review of imaging and blood test and discussion with the patient on follow-up instructions. Subjective: Patient wants to go home. Patient has fine tremors but overall alcohol withdrawal symptoms are much better. CIWA score 4. Seen by PT and OT recommended no further therapy but walker was given to help with unsteady gait. Objective: General: Alert, Oriented x3, Cooperative HEENT: Atraumatic, PERRLA, EOMI, Normocephalic Neck: Supple, No JVD, Negative Carotid Bruits Lungs: Clear to auscultation, No rhonchi, No wheeze, air entry bilaterally diminished Cardiovascular: Regular rate, Regular Rhythm, Normal S1, Normal S2, No murmurs Abdomen: Bowel Sounds Present, Soft, Non Tender, Non-Distended Extremities: No edema, Capillary Refill Less than 3 Seconds. Skin: No rashes, No breakdown, Ulcer/ Wound - Patient also has history of skin/subcutaneous abscesses in the past and currently abscess status post incision and drainage in ER on right periscapular region. It was about 4 cm. No redness or tenderness surrounding the incision. Mild induration much improved Musculoskeletal: No Tenderness to Palpation of Joints or Extremities, Arthritic Changes Neurological: Cranial nerves II-XII grossly intact, Deep Tendon Reflexes 2+/4 and Symmetrical, Neuro grossly intact, mild fine tremors of finger. Unsteady gait but is better Psych/Mental Status: Normal Affect, Appropriate - Physical Exam Vital Signs Temp Pulse Resp BP Pulse Ox 98 F 62 18 143/87 H 97 01/13/19 05:02 01/13/19 05:02 01/13/19 05:02 01/13/19 05:02 01/13/19 05:02 Oxygen Delivery Method Room Air Weight: 225 lb 1.471 oz Body Mass Index (BMI) 32.3 Intake and Output for Last 24 Hours 01/11/19 01/12/19 01/13/19 23:59 23:59 23:59 Intake Total 4200 / 4200 2470 / 2470 200 / 200 Output Total 3820 / 3820 Balance 380 / 380 2470 / 2470 200 / 200 Laboratory Tests Past 24 Hrs 01/12/19 08:23 Potassium 4.0 Discharge Activity: May Not Drive Call your doctor if you observe: Fever of 101 or Higher, Inability to urinate, Inability to have a bowel movement, Shortness of breath, Dizziness, Fainting spells, Increased palpitations (irregular heartbeat) Home Medications: Medications to take at Discharge Metoprolol Tartrate 25 mg PO BID 12/11/18 Lisinopril 20 mg PO DAILY 01/10/19 Multivitamins,Therapeutic [Multivitamin] 1 tablet PO DAILYCM tablet 01/13/19 Primary Care Physician: José Miguel Moses MD [Primary Care Provider] - Please follow up with your Primary Care Physician in: in 1-2 week Medical Necessity - Tobacco Use Smoking Status: Former smoker Tobacco Use: Cigarettes Meaningful Use Info Meaningful Use Diagnoses (Choose all that apply): None applicable Code Visit Inpatient E&M: 44666 Disch Hosp
[2019-01-13 16:11] LABS: Anion Gap 2 (5-15); BUN 19 mg/dL (7-18); BUN/Creat Ratio 16.4 RATIO (10-20); Calcium,Total 8.8 mg/dL (8.5-10.1); Chloride 102 mmol/L (98-107); Creatinine, Serum 1.16 mg/dL (0.70-1.30); EST Glomerular Filtration Rate 68 mL/min (>60); Est Glom Filt Rate - Afr Amer 83 mL/min (>60); Glucose 112 mg/dL (74-106); Potassium 4.2 mmol/L (3.5-5.1); Sodium Level 135 mmol/L (136-145)
[2019-01-13] MEDS: traZODone 50 MG Tablet PO (21:17)
[2019-01-14 08:37] VITALS: BP 141/89; PULSE 80; RESP 18; TEMP 36.7; O2SAT 100
--- NOTE | 2019-01-14 10:00 | CASEMGMT ---
RN CM Note: pt remained overnight due to being unsteady and Dr. Cabrera requesting walker/PT for pt. Per Denia, Physical Therapy- re-evaluation completed today. Per PT- pt is steady, ambulatory DME is not recommended and he is safe to return home without additional therapy. Dr. Cabrera updated verbally and ok to DC pt today to home. [facility] nurse and nurse updated. Abimbola NGUYENN RN ACM
[2019-01-14 10:32] VITALS: PULSE 86
[2019-01-14] MEDS: Metoprolol Tartrate 25 MG Tablet PO (10:32)
[2019-01-14] MEDS: Multivitamins,Therapeutic Tablet 1 TABLET PO (10:33)
[2019-01-14] MEDS: Lisinopril 20 MG Tablet PO (10:33)
--- NOTE | 2019-01-15 14:27 | CASEMGMT ---
DAYSI MCCURDY Discharge Follow-Up Phone Call. Lace: 13 Strata: 4 Discharge Date: 01/14/19 Adm Dx: ETOH W/D Attempted discharge follow-up phone call. No answer. Message left for pt to return call to MS2 DAYSI Flores if he has any questions about the discharge instructions, medications, appts, or any other questions. Phone number provided. Brett PAREDES RN, CM
== END 2019-01-14 11:23 | disposition home or self-care (01) | DRG 897 ==
LOC: ED 01-10 00:17 → MS2 01-10 07:15
PROVIDERS: Student in an Organized Health Care Education/Training Program; Admitting Provider Family Medicine; Emergency Provider Emergency Medicine; Family Provider Family Medicine; PCP Family Medicine; Visit Provider Internal Medicine
DX: F10.239 Alcohol dependence with withdrawal, unspecified (principal); E87.1 Hypo-osmolality and hyponatremia; L02.212 Cutaneous abscess of back [any part, except buttock and flank]; D69.6 Thrombocytopenia, unspecified; K70.10 Alcoholic hepatitis without ascites; I25.10 Atherosclerotic heart disease of native coronary artery without angina pectoris; J44.9 Chronic obstructive pulmonary disease, unspecified; I10 Essential (primary) hypertension; Z87.891 Personal history of nicotine dependence; E87.6 Hypokalemia; R53.81 Other malaise
CPT/HCPCS: 36415; 76705; 80048; 80053; 80076; 80307; 80320; 82977; 83735; 84132; 85025; 85610; 93005; 97110; 97116; 97162; 97166; 97535; 99285; J7030; A4216; G0480; J2405

== ENCOUNTER → 2019-02-26 16:29 | Outpatient (CLI) | payer OTHER, SELFPAY ==
[2019-01-10 00:45] VITALS: BMI 32.3
--- NOTE | 2019-02-26 16:32 | RAD_ITS ---
HISTORY: back and leg pain TECHNIQUE: Lumbar spine 5 views Number of images including paperwork: 5 COMPARISON: None FINDINGS: VERTEBRAE: No acute fracture. VERTEBRAL ALIGNMENT: No traumatic subluxation. DISKS AND JOINTS: Mild discogenic degenerative changes, most evident at L4-5. Moderate to severe facet arthropathy. SOFT TISSUES: Vascular calcifications. RAD/L/S Spine Min 4 Views IMPRESSION: 1. No acute osseous abnormality. 2. Lumbar spondylosis. at 2302 Reported and signed by: Sarah Handy MD Electronically Signed: Sarah Handy MD at 23:02 EDT Tel , Service support ,
[2019-02-26 18:21] LABS: Hematocrit 38.9 % (40-54); Hemoglobin 12.7 g/dl (13.0-16.5); Mean Corp Hgb Conc 32.6 g/gl (32-36); Mean Corpuscular Hgb 31.5 pg (27.0-32.0); Mean Corpuscular Volume 96.5 fL (80-94); Mean Platelet Vol. 9.1 fl (6.2-12.0); Platelet Count 225 K/mm3 (150-450); RBC Distribution Width CV 12.6 % (11.6-14.6); RBC Distribution Width SD 44.4 fl (35.1-43.9); Red Blood Count 4.03 M/mm3 (4.6-6.2); White Blood Count 6.6 K/mm3 (4.4-11.0)
[2019-02-26 18:22] LABS: Scan Indicated on CBC? Y/N NO
[2019-02-26 18:51] LABS: Vitamin B12 354 pg/mL (211-911)
[2019-02-26 19:16] LABS: ALB/GLOB Ratio 0.8 RATIO (0.9-2.4); AST(SGOT) 18 U/L (15-37); Alanine Aminotransfer ALT/SGPT 25 U/L (16-61); Albumin, Serum 3.6 g/dL (3.2-5.0); Alkaline Phosphatase 78 U/L (45-117); Anion Gap 9 (5-15); BUN 19 mg/dL (7-18); BUN/Creat Ratio 17.8 RATIO (10-20); Calcium,Total 9.2 mg/dL (8.5-10.1); Chloride 103 mmol/L (98-107); Creatinine, Serum 1.07 mg/dL (0.70-1.30); EST Glomerular Filtration Rate 75 mL/min (>60); Est Glom Filt Rate - Afr Amer 91 mL/min (>60); Globulin 4.3 g/dL (2.2-4.2); Glucose 95 mg/dL (74-106); Magnesium 2.1 mg/dL (1.6-2.6); Potassium 3.8 mmol/L (3.5-5.1); Protein, Total 7.9 g/dL (6.4-8.2); Sodium Level 140 mmol/L (136-145)
== END ==
PROVIDERS: Family Provider Family Medicine; PCP Family Medicine; Referring Provider Family Medicine; Visit Provider Family Medicine
DX: F10.239 Alcohol dependence with withdrawal, unspecified (principal); M54.9 Dorsalgia, unspecified
CPT/HCPCS: 36415; 72110; 80053; 82607; 82746; 83735; 84425; 85027

== ENCOUNTER → 2019-03-21 09:42 | Outpatient (CLI) | payer OTHER, SELFPAY ==
[2019-01-10 00:45] VITALS: BMI 32.3
--- NOTE | 2019-03-21 09:50 | ART_ITS ---
Reason For Study: claudication Left Segmental Pressures Left brachial= 165mmHg. Left posterior tibial artery = 146mmHg. Left dorsalis pedis artery = 148mmHg. The left dorsalis pedis waveforms are triphasic. The left posterior tibial artery waveforms are triphasic. Right Segmental Pressures Right brachial= 163mmHg. Right posterior tibial artery = 100mmHg. Right dorsalis pedis artery = 88mmHg. The right dorsalis pedis waveforms are monophasic. The right posterior tibial artery waveforms are monophasic. Indices The right ankle brachial index by the dorsalis pedis is .53. The right ankle brachial index by the posterior tibial artery is .61. The left ankle brachial index by the dorsalis pedis is .9. The left ankle brachial index by the posterior tibial artery is .88. Interpretation Summary Monophasic Doppler waveforms are noted at ankle level on the right. Triphasic Doppler waveforms are noted at ankle level on the left. Pulse-volume recording waveform amplitudes are diminished at ankle level bilaterally. The resting right ankle-brachial index is moderately diminished. The resting left ankle-brachial index is low-normal. There is evidence of moderate/severe arterial occlusive disease in the right lower extremity. There is no evidence of significant arterial occlusive disease in the left lower extremity, based upon this resting study. Ordering Physician: José Miguel Moses Performed By: HEATHER MENDOSA RVT
== END ==
PROVIDERS: Family Provider Family Medicine; PCP Family Medicine; Referring Provider Family Medicine; Visit Provider Family Medicine
DX: I73.9 Peripheral vascular disease, unspecified (principal)
CPT/HCPCS: 93922

== ENCOUNTER → 2019-06-10 13:49 | Outpatient (CLI) | payer OTHER, SELFPAY ==
[2019-01-10 00:45] VITALS: BMI 32.3
[2019-06-10 14:09] LABS: Hematocrit 44.5 % (40-54); Hemoglobin 14.9 g/dL (13.0-16.5); Mean Corp Hgb Conc 33.5 g/dL (32-36); Mean Corpuscular Hgb 30.3 pg (27.0-32.0); Mean Corpuscular Volume 90.4 fL (80-94); Mean Platelet Vol. 8.8 fl (6.2-12.0); Platelet Count 185 K/mm3 (150-450); RBC Distribution Width CV 12.2 % (11.6-14.6); RBC Distribution Width SD 40.3 fl (35.1-43.9); Red Blood Count 4.92 M/mm3 (4.6-6.2); White Blood Count 7.5 K/mm3 (4.4-11.0)
--- NOTE | 2019-06-10 14:18 | CT_ITS ---
STUDY: CTA OF THE ABDOMINAL AORTA AND BILATERAL LOWER EXTREMITIES REASON FOR EXAM: Male, 59 years old. Peripheral vascular disease, numbness and tingling in legs, unable to walk long distances. RADIATION DOSAGE (If Supplied By Facility): CTDIvol = ( 9.36 ) mGy, DLP = ( 1969.66 ) mGycm TECHNIQUE: Axial CT angiography multi-detector data acquisition was obtained from the lung bases to the toes following intravenous administration of IV 100mL Isovue-370 100. Axial images and MIP images were reconstructed from the axial data set. Post-processing of the angiographic images was performed, with multiplanar reformation and 3D reconstruction. Individualized dose optimization techniques were used for this CT. TECHNICAL QUALITY: Good COMPARISON: None. Descriptors of Narrowing: None (0%) Mild (< 50%) Moderate (50-70%) Severe (70-90%) Subtotal/Total Occlusion (90-100%) Non-Evaluable (technically non-diagnostic FINDINGS: Abdominal aorta: There is diffuse atherosclerotic calcific plaquing of the abdominal aorta, without a demonstrated aneurysm, dissection, or stenosis. Celiac artery: There is 50-69% calcific atherosclerotic ostial narrowing. Normal branching anatomy. Superior mesenteric artery: Mild osteoarthritic calcification with no demonstrated narrowing. Inferior mesenteric artery: At least moderate ostial narrowing. Right renal artery(arteries): 60-75% atherosclerotic ostial stenosis. Left renal artery(arteries): 50-69% atherosclerotic ostial stenosis Right common iliac artery: Diffuse atherosclerotic calcific plaquing with no demonstrated narrowing. Right external iliac artery: Mild to moderate atherosclerotic calcification with short segment 50-69% narrowing at its mid third. Right internal iliac artery: Moderate atelectatic calcific plaquing with narrowings most prominent in the branch vessels Left common iliac artery: Mild/moderate atherosclerotic calcific plaquing with no demonstrated narrowing. Left external iliac artery: Mild atherosclerotic calcification with no demonstrated narrowing. Left internal iliac artery: Diffuse atherosclerotic calcification with greater than 70% stenosis in the main trunk and branch vessels. RIGHT LOWER EXTREMITY Right common femoral artery: Atherosclerotic calcific plaquing with short segment greater than 70% narrowing. Right profundus femoris: Short segment after psychosocial plaquing followed by focal greater than 70% narrowing just above its segmental bifurcation. Right superficial femoral: Atherosclerotic calcific plaquing at the proximal to mid third of the vessel. At its distal third, there is calcific plaquing with greater than 70% stenosis extending through the adductor canal to a near 7 cm length occlusion into the upper popliteal artery. Right popliteal artery: Reconstituted at the level of the patella. There is atherosclerotic calcific plaquing with greater than 70% focal stenosis at the level of the knee joint demonstrated narrowing. Right anterior tibial artery: Calcific plaquing without severe stenosis as the patient passes over the interosseous ligament. The shows severe distal tapering to occlusion above the ankle. No significant antegrade filling of the dorsalis pedis Right tibioperoneal trunk: Average sac calcific plaquing with severe stenosis just above its bifurcation Right posterior tibial artery: Moderate ostial narrowing, otherwise patent to the right foot. Right peroneal artery: Severe ostial atherosclerotic calcific stenosis, the vessel is otherwise patent to the ankle. LEFT LOWER EXTREMITY Left common femoral artery: Eccentric calcific atherosclerotic plaquing with 50% narrowing. Left profundus femoris: Multifocal calcific plaquing with short segments of greater than 70% narrowing. Left superficial femoral: Mild to moderate calcifications described plaquing with short segment 50% narrowing at the adductor canal. Left popliteal artery: Atherosclerotic calcific plaquing with short segment severe stenosis just below the adductor canal followed by second short segment of severe narrowing just above the knee joint. Left anterior tibial artery: Moderate near ostial narrowing. The vessel remains patent to the dorsalis pedis Left tibioperoneal trunk: Atherosclerotic calcific plaquing with severe narrowing just above its bifurcation. Left posterior tibial artery: Moderate ostial narrowing, otherwise patent to the left foot. Left peroneal artery: Moderate ostial narrowing, otherwise patent to the ankle. The visualized lung bases are unremarkable. The heart size is upper normal. There are atherosclerotic calcifications of the coronary arteries and visualized distal descending thoracic aorta. Probable prior endovascular stenting of the left anterior descending coronary artery Normal liver. The grossly patent portal vein diameter is 14 mm. Normal gallbladder and extrahepatic biliary system. Normal spleen. Normal pancreas. Normal bilateral adrenal glands. Normal right kidney. Normal left kidney. No hydronephrosis. Normal visualized stomach. Normal small intestine. Normal colon. The mildly fecal distended appendix is visualized and otherwise appears normal. Normal inferior vena cava. There is some hypertrophy of the iliopsoas muscles. Normal urinary bladder. Normal visualized prostate gland. There is a small left-sided inguinal hernia containing adipose tissue. There are multilevel degenerative changes of the visualized lumbar spine as well as degenerative arthroses of the sacroiliac and hip joints. CT/CTA Abd w/Runoff W/WO Contrast IMPRESSION: 1. Aortic iliac atherosclerotic calcific plaquing. There is short segment 50-69% partially calcified atherosclerotic narrowing in the mid right external iliac artery. No significant inflow stenosis on the left. 2. Calcific atherosclerotic plaquing greatest short segment >70% stenosis of the right common femoral artery, followed by >70% calcific atherosclerotic stenosis at the adductor canal, then proceeding for a near occlusive 7 cm segment into the upper popliteal artery. 3. >70% calcific atherosclerosis also seen in the mid right popliteal artery and in the distal tibioperoneal trunk. The posterior tibial artery is the primary runoff vessel to the foot. There is severe ostial disease of the peroneal artery as well as severe distal tapering of the anterior tibial artery to an occlusion above the ankle. 4. 50% atherosclerotic calcific narrowing of the left common femoral artery followed by 50% short segment stenosis of the superficial femoral artery at the adductor canal. This in turn is followed by short segment severe atherosclerotic stenosis of the popliteal artery just below the abductor canal and a second short segment of severe narrowing just above the knee joint. 5. Severe atherosclerotic narrowing seen in the distal tibioperoneal trunk. There is otherwise moderately diseased three-vessel runoff to the left foot. 6. Coronary artery atherosclerotic calcific plaquing also present. Probable prior endovascular stenting of the left anterior descending coronary artery. 7. Small, fat-containing left inguinal hernia. 8. Degenerative changes of the spine, sacroiliac joints, and hips. Electronically Signed: Fletcher Cash MD at 17:34 EDT , Service support ,
[2019-06-10 14:33] LABS: ALB/GLOB Ratio 0.9 RATIO (0.9-2.4); AST(SGOT) 16 U/L (15-37); Alanine Aminotransfer ALT/SGPT 22 U/L (16-61); Albumin, Serum 3.7 g/dL (3.2-5.0); Alkaline Phosphatase 96 U/L (45-117); Anion Gap 6 (5-15); BUN 14 mg/dL (7-18); BUN/Creat Ratio 12.2 RATIO (10-20); Chloride 103 mmol/L (98-107); Cholesterol 190 mg/dL (200); Creatinine, Serum 1.15 mg/dL (0.70-1.30); EST Glomerular Filtration Rate 69 mL/min (>60); Est Glom Filt Rate - Afr Amer 83 mL/min (>60); Globulin 4.1 g/dL (2.2-4.2); Glucose 90 mg/dL (74-106); High Density Lipoprotein 36 mg/dL; Protein, Total 7.8 g/dL (6.4-8.2); Sodium Level 138 mmol/L (136-145); Triglycerides 115 mg/dL; Very Low Density Lipoprotein 23 mg/dL (5-40)
[2019-06-10 15:02] LABS: Vitamin B12 343 pg/mL (211-911); Vitamin D,25 Hydroxy 29.5 ng/mL (29.95-100.01)
== END ==
PROVIDERS: Family Provider Family Medicine; PCP Family Medicine; Referring Provider Surgery Vascular Surgery; Visit Provider Surgery Vascular Surgery
DX: I73.9 Peripheral vascular disease, unspecified (principal); F10.20 Alcohol dependence, uncomplicated
CPT/HCPCS: 36415; 75635; 80053; 80061; 82306; 82607; 85027; Q9967

== ENCOUNTER → 2021-08-03 16:16 | Outpatient (CLI) | payer OTHER, SELFPAY ==
[2021-08-03 17:43] LABS: Hematocrit 43.2 % (40-54); Hemoglobin 14.2 g/dL (13.0-16.5); Mean Corp Hgb Conc 32.9 g/dL (32-36); Mean Corpuscular Hgb 30.2 pg (27.0-32.0); Mean Corpuscular Volume 91.9 fL (80-94); Mean Platelet Vol. 9.4 fl (6.2-12.0); Platelet Count 253 K/mm3 (150-450); RBC Distribution Width CV 12.8 % (11.6-14.6); RBC Distribution Width SD 42.9 fl (35.1-43.9)
[2021-08-03 18:17] LABS: AST(SGOT) 13 U/L (15-37); Alanine Aminotransfer ALT/SGPT 18 U/L (16-61); Alkaline Phosphatase 109 U/L (45-117); Anion Gap 6 (5-15); BUN 21 mg/dL (7-18); BUN/Creat Ratio 17.9 RATIO (10-20); Calcium,Total 8.9 mg/dL (8.5-10.1); Chloride 106 mmol/L (98-107); Cholesterol 225 mg/dL (200); Creatinine, Serum 1.17 mg/dL (0.70-1.30); EST Glomerular Filtration Rate 67 mL/min (>60); Est Glom Filt Rate - Afr Amer 81 mL/min (>60); Globulin 4.2 g/dL (2.2-4.2); Glucose 94 mg/dL (74-106); High Density Lipoprotein 32 mg/dL; Potassium 4.1 mmol/L (3.5-5.1); Protein, Total 8.2 g/dL (6.4-8.2); Sodium Level 138 mmol/L (136-145); Thyroid Stim Hormone (TSH) 1.59 uIU/mL (0.358-3.74); Triglycerides 147 mg/dL; Very Low Density Lipoprotein 29 mg/dL (5-40)
== END ==
PROVIDERS: PCP Family Medicine; Referring Provider Family Medicine; Visit Provider Family Medicine
DX: I25.10 Atherosclerotic heart disease of native coronary artery without angina pectoris (principal)
CPT/HCPCS: 36415; 80053; 80061; 84443; 85027

== ENCOUNTER → 2022-09-19 | Outpatient (CLI) | payer OTHER, SELFPAY ==
[2022-09-19 18:11] LABS: Hematocrit 40.2 % (40-54); Hemoglobin 13.7 g/dL (13.0-16.5); Mean Corp Hgb Conc 34.1 g/dL (32-36); Mean Corpuscular Hgb 31.1 pg (27.0-32.0); Mean Corpuscular Volume 91.2 fL (80-94); Mean Platelet Vol. 9.2 fl (6.2-12.0); Platelet Count 240 K/mm3 (150-450); RBC Distribution Width CV 12.8 % (11.6-14.6); RBC Distribution Width SD 42.5 fl (35.1-43.9); Red Blood Count 4.41 M/mm3 (4.6-6.2); White Blood Count 9.5 K/mm3 (4.4-11.0)
[2022-09-19 19:03] LABS: ALB/GLOB Ratio 1.1 RATIO (0.9-2.4); AST(SGOT) 17 U/L (15-37); Alanine Aminotransfer ALT/SGPT 25 U/L (16-61); Alkaline Phosphatase 104 U/L (45-117); Anion Gap 7 (5-15); BUN 16 mg/dL (7-18); BUN/Creat Ratio 12.3 RATIO (10-20); Chloride 101 mmol/L (98-107); Cholesterol 143 mg/dL (200); EST Glomerular Filtration Rate 59 mL/min (>60); Est Glom Filt Rate - Afr Amer 72 mL/min (>60); Globulin 3.5 g/dL (2.2-4.2); Glucose 88 mg/dL (74-106); High Density Lipoprotein 33 mg/dL; PSA,Total - Annual Screen 0.52 ng/mL (0.00-4.00); Potassium 4.2 mmol/L (3.5-5.1); Protein, Total 7.5 g/dL (6.4-8.2); Sodium Level 137 mmol/L (136-145); Triglycerides 99 mg/dL; Very Low Density Lipoprotein 20 mg/dL (5-40)
== END | disposition home or self-care (01) ==
LOC: MFPLAB 16:38
PROVIDERS: PCP Family Medicine; Referring Provider Family Medicine; Visit Provider Family Medicine
DX: I25.10 Atherosclerotic heart disease of native coronary artery without angina pectoris (principal); Z12.5 Encounter for screening for malignant neoplasm of prostate
CPT/HCPCS: 36415; 80053; 80061; 84153; 85027; G0103

== ENCOUNTER → 2024-02-20 | Outpatient (CLI) | payer OTHER, SELFPAY ==
[2024-02-20 15:18] LABS: Hematocrit 35.5 % (40-54); Hemoglobin 11.4 g/dL (13.0-16.5); Mean Corp Hgb Conc 32.1 g/dL (32-36); Mean Corpuscular Hgb 29.3 pg (27.0-32.0); Mean Corpuscular Volume 91.3 fL (80-94); Mean Platelet Vol. 9.7 fl (6.2-12.0); Platelet Count 229 K/mm3 (150-450); RBC Distribution Width CV 13.2 % (11.6-14.6); RBC Distribution Width SD 43.7 fl (35.1-43.9); Red Blood Count 3.89 M/mm3 (4.6-6.2); White Blood Count 8.6 K/mm3 (4.4-11.0)
[2024-02-20 15:41] LABS: ALB/GLOB Ratio 1.1 RATIO (0.9-2.4); AST(SGOT) 15 U/L (15-37); Alanine Aminotransfer ALT/SGPT 22 U/L (16-61); Albumin, Serum 3.9 g/dL (3.2-5.0); Alkaline Phosphatase 121 U/L (45-117); Anion Gap 6 (5-15); BUN 17 mg/dL (7-18); BUN/Creat Ratio 14.5 RATIO (10-20); Chloride 105 mmol/L (98-107); Cholesterol 116 mg/dL (200); Creatinine, Serum 1.17 mg/dL (0.70-1.30); EST Glomerular Filtration Rate 67 mL/min (>60); Est Glom Filt Rate - Afr Amer 81 mL/min (>60); Globulin 3.7 g/dL (2.2-4.2); Glucose 106 mg/dL (74-106); High Density Lipoprotein 42 mg/dL; PSA,Total - Annual Screen 0.71 ng/mL (0.00-4.00); Potassium 4.1 mmol/L (3.5-5.1); Protein, Total 7.6 g/dL (6.4-8.2); Sodium Level 137 mmol/L (136-145); Triglycerides 40 mg/dL; Very Low Density Lipoprotein 8 mg/dL (5-40)
== END | disposition home or self-care (01) ==
LOC: MFPLAB 12:28
PROVIDERS: PCP Family Medicine; Visit Provider Family Medicine
DX: Z12.5 Encounter for screening for malignant neoplasm of prostate (principal); E78.5 Hyperlipidemia, unspecified; I73.9 Peripheral vascular disease, unspecified
CPT/HCPCS: 36415; 80053; 80061; 84153; 85027; G0103

== ENCOUNTER → 2024-07-21 | Outpatient (CLI) | payer OTHER, SELFPAY ==
--- NOTE | 2024-07-21 12:48 | ART_ITS ---
Reason For Study: PVD Procedure A bilateral lower extremity continuous wave Doppler with analog waveform analysis and ankle brachial indexes. Left Segmental Pressures Left brachial= 144mmHg. Left posterior tibial artery = 90mmHg. Left dorsalis pedis artery = 84mmHg. Left digit = 74 mmHg. The left dorsalis pedis waveforms are monophasic. The left posterior tibial artery waveforms are monophasic. Right Segmental Pressures Right brachial= 149mmHg. Right posterior tibial artery = 67mmHg. Right dorsalis pedis artery = 71mmHg. Right digit = 28 mmHg. The right dorsalis pedis waveforms are monophasic. The right posterior tibial artery waveforms are monophasic. Indices The right ankle brachial index by the dorsalis pedis is 0.48. The right ankle brachial index by the posterior tibial artery is 0.45. The right digital-brachial index is 0.19. The left ankle brachial index by the dorsalis pedis is 0.56. The left ankle brachial index by the posterior tibial artery is 0.60. The left digital-brachial index is 0.50. . Patient schedule to see [facility] Vascular surgeon in coming weeks. VL/Ankle Brachial Index Interpretation Summary Monophasic Doppler waveforms are noted at ankle level bilaterally. Pulse-volume recordings appear diminished at ankle and digital level on the right, but satisfactory at ankle a nd digital level on the left. The resting right ankle-brachial index is severely diminished. The re sting left ankle- brachial index is moderately diminished. The right digital-brachial index is se verely diminished. The left digital-brachial index is moderately diminished. There is evidence of severe, multi-segmental arterial occlusive disease in the right lower extremity. There is evidence of moderate arterial occlusive disease in the left lower extremity. Ordering Physician: Robert Ruggiero Referring Physician: ROBERT RUGGIERO MD Performed By: Kym Goodwin RVT
== END | disposition home or self-care (01) ==
LOC: CVS 12:46
PROVIDERS: PCP Family Medicine; Referring Provider Family Medicine; Visit Provider Family Medicine
DX: I73.9 Peripheral vascular disease, unspecified (principal)
CPT/HCPCS: 93922

== ENCOUNTER → 2024-11-17 | Outpatient (CLI) | payer OTHER, SELFPAY | END | disposition home or self-care (01) | LOC: LABSPEC 13:46 | PROVIDERS: PCP Family Medicine; Referring Provider Family Medicine; Visit Provider Family Medicine | DX: L02.222 Furuncle of back [any part, except buttock and flank] (principal) | CPT/HCPCS: 87070; 87205 ==

== ENCOUNTER → 2024-11-20 | Outpatient (CLI) | payer OTHER, SELFPAY | END | disposition home or self-care (01) | LOC: LABSPEC 08:53 | PROVIDERS: PCP Family Medicine; Referring Provider Family Medicine; Visit Provider Family Medicine | DX: L02.222 Furuncle of back [any part, except buttock and flank] (principal) | CPT/HCPCS: 87070; 87205 ==